=== PATIENT | male | born 1930 | race Caucasian/White ===

== ENCOUNTER 2016-04-19 18:56 | Inpatient (IN) | payer OTHER, MEDICARE ==
[~2016-04-19] VITALS: Ht 170.2 cm; Wt 71.7 kg
[~2016-04-19 18:56] MED LIST: ARICEPT10 M1 PO; ATIVAN1 M1 PO; COSOPT EYE DROP10 ML OD; LEXAPRO20 M1 PO; LIPITOR40 M1 PO; MOBIC7.5 M1 PO; TRAVATAN Z5 ML OPH; TRAZODONE HCL50 M1 PO; VITAMIN B-121000 MC3 PO
--- NOTE | 2016-04-19 19:18 | ED MVC/FALL/TRAUMA COMPLAINT ---
History of Present Illness General Chief Complaint: Fall Stated Complaint: MECHANICAL FALL, -LOC, L HIP PAIN Source: patient Exam Limitations: confusion, dementia Vital Signs & Intake/Output Vital Signs & Intake/Output Vital Signs Date Time Temp Pulse Resp B/P Pulse O2 O2 Flow FiO2 Ox Delivery Rate 04/20 0101 99.4 68 16 117/65 94 Room Air 04/19 2231 98.6 62 18 117/73 95 Room Air 04/19 2126 98 Room Air 04/19 1902 97.6 62 18 166/81 96 Room Air ED Intake and Output 04/20 0000 04/19 1200 Intake Total Output Total 250 Balance -250 Output, Urine 250 Patient 175 lb Weight Allergies Coded Allergies: brinzolamide (From AZOPT) (UNKNOWN PER PT DAUGHTER 12/28/15) Reconcile Medications Atorvastatin Calcium (Lipitor) 40 MG TABLET 1 TAB PO QPM CHOLESTEROL ( Reported) Cyanocobalamin (Vitamin B-12) 1,000 MCG TABLET 1 TAB PO DAILY SUPPLEMENT ( Reported) Donepezil HCl (Aricept) 10 MG TABLET 1 TAB PO QPM MEMORY (Reported) Dorzolamide HCl/Timolol Maleat (Cosopt Eye Drops) 10 ML DROPS 1 GTT OD BID RIGHT EYE (Reported) Escitalopram Oxalate (Lexapro) 20 MG TABLET 1 TAB PO QAM MENTAL HEALTH ( Reported) Lorazepam (Ativan) 1 MG TABLET 1 TAB PO QPM ANXIETY/SLEEP (Reported) Meloxicam (Mobic) 7.5 MG TABLET 1 TAB PO QAM PAIN/INFLAMMATION (Reported) Travoprost (Travatan Z) 5 ML DROPS 1 GTT OPH QPM BOTH EYES (Reported) Trazodone HCl 50 MG TABLET 1 TAB PO QAM MENTAL HEALTH (Reported) Triage Note: 85 YO MALE PEEWEE FROM HOME. PT HX OF ALHEIZMERS DISEASE, LIVES ALONE. PT ALERT, ARRIVES IN [place]. PER EMS PT WAS FOUND IN GARAGE S/P MECHANICAL FALL. PT STATES HE FELL IN HIS KITCHEN. C/O L HIP PAIN. PT ABLE TO MOVE EXTREMITY. Triage Nurses Notes Reviewed? yes Onset: Abrupt Duration: hour(s):, constant, continues in ED Timing: recent history Severity: moderate, severe Injuries/Fall Location: lower extremity Method of Injury: fall Loss of Consciousness: unsure No Modifying Factors: none HPI: 85 -year-old male comes into emergency room for further evaluation of left hip pain after falling at home. Patient reportedly fell in the garage and was unable to get off of the ground. Patient complains of left hip pain. Unsure if he hit his head. Denies any head or neck pain at the moment. Denies any vomiting. Denies any preceding symptoms prior to fall. History is limited secondary to patient has baseline dementia. (FOSTER RICHARDSON) Past History Travel History Traveled to [place] past 21 day No Medical History Any Pertinent Medical History? see below for history Neurological: Alzheimer's disease EENT: glaucoma, macular degeneration Cardiovascular: PPM Respiratory: NONE Gastrointestinal: ACID REFLUX Hepatic: NONE Renal: NONE Musculoskeletal: osteoarthritis Psychiatric: depression Endocrine: NONE Blood Disorders: NONE Cancer(s): prostate cancer [employer]PERINT[employer]ENT GREENS/Reproductive: NONE Surgical History Surgical History: ppm Psychosocial History What is your primary language Chinese Tobacco Use: Never used Family History Hx Contributory? No (FOSTER RICHARDSON) Review of Systems Review of Systems Constitutional: Reports: no symptoms. Eyes: Reports: no symptoms. Ears, Nose, Throat, Mouth: Reports: no symptoms. Respiratory: Reports: no symptoms. Cardiovascular: Reports: no symptoms. Gastrointestinal/Abdominal: Reports: no symptoms. Genitourinary: Reports: no symptoms. Musculoskeletal: Reports: see HPI. Skin: Reports: no symptoms. Neurological/Psychological: Reports: no symptoms. All Other Systems: Reviewed and Negative (FOSTER RICHARDSON) Physical Exam Physical Exam General Appearance: alert, awake, mild distress Head: atraumatic, normal appearance Eyes: Bilateral: normal appearance, EOMI. Ears, Nose, Throat, Mouth: hearing grossly normal, moist mucous membrane Neck: normal inspection, full range of motion Respiratory: normal breath sounds Cardiovascular: regular rate/rhythm Gastrointestinal: soft Extremities: TENDERNESS LEFT HIP, PAIN WITH RANGE OF MOTION, Neurologic/Psych: awake, alert, oriented x 3, normal gait, normal mood/affect Skin: intact, normal color Core Measures ACS in differential dx? No Severe Sepsis Present: No Septic Shock Present: No (FOSTER RICHARDSON) Progress Differential Diagnosis: abd injury, C/T/L spine injury, ext injury, ICH, pelvis injury, pnemothorax, spinal cord injury Plan of Care: Orders Procedure Date/time Status Nothing by Mouth 04/20 B Active Pathway - chart 02/01 0147 Active House Staff 04/20 146 Active Vital Signs 04/20 146 Active Code Status 04/20 146 Active Patient Data 04/20 26 Active Saline Lock 04/20 23 Active Misc Message 04/20 23 Active ED Holding Orders 04/20 23 Active Vital Signs 04/20 23 Active Code Status 04/20 23 Complete Admit to inpatient 04/19 2356 Active Add-on Test (ER Only) 04/19 1939 Active Intake & Output 04/19 1920 Active TROPONIN LEVEL 04/19 1917 Complete PARTIAL THROMBOPLASTIN TIME 04/19 1917 Complete PROTHROMBIN TIME 04/19 1917 Complete ETHANOL 04/19 1917 Complete COMPREHENSIVE METABOLIC PANEL 04/19 1917 Complete CBC WITHOUT DIFFERENTIAL 04/19 1917 Complete EKG 04/19 1917 Active Current Medications Sig/Chang Start time Last Medication Dose Stop Time Status Admin Dextrose/Sodium 1,000 ML Q13H 04/20 0200 UNVr Chloride (D5-Normal Saline) Oxycodone HCl 5 MG Q6H PRN 04/20 0200 UNVr (Roxicodone) Acetaminophen 650 MG Q6P PRN 04/20 0145 UNVr (Tylenol) Morphine Sulfate 4 MG Q4P PRN 04/20 0145 UNVr (Morphine) Laboratory Tests 04/19/16 2323: Anion Gap 10, Estimated GFR > 60, BUN/Creatinine Ratio 22.9, Glucose 125 H, Calcium 8.6, Total Bilirubin 0.6, AST 22, ALT 33, Alkaline Phosphatase 100, Troponin I < 0.01, Total Protein 6.3, Albumin 3.8, Globulin 2.5, Albumin/ Globulin Ratio 1.5, PT 10.5, INR 1.00, APTT < 20 L, CBC w Diff NO MAN DIFF REQ, RBC 3.21 L, MCV 100.3 H, MCH 34.6 H, RDW 14.3, MPV , Gran % 86.9 H, Lymphocytes % 8.6 L, Monocytes % 3.2, Eosinophils % 1.1, Basophils % 0.2, Absolute Granulocytes 7.6 H, Absolute Lymphocytes 0.8 L, Absolute Monocytes 0.3, Absolute Eosinophils 0.1, Absolute Basophils 0, PUBS MCHC 34.5, Serum Alcohol < 10.0 Diagnostic Imaging: Viewed by Me: Radiology Read, CT Scan. Discussed w/RAD: Radiology Read, CT Scan. Radiology Impression: EXAM TYPE: RAD - XRY-HIP 2-3 VIEWS, LEFT EXAMINATION: XR HIP, LEFT CLINICAL INFORMATION: Trauma. Pain. COMPARISON: None TECHNIQUE: 4 views of the left hip. FINDINGS: Exam shows a minimally displaced intertrochanteric fracture of the left hip. A varus deformity is present. There is no dislocation of the hip joint. Atelectasis are present in the floor the pelvis. IMPRESSION: Slightly displaced intertrochanteric fracture with varus deformity of the left hip. DICTATED BY: JUNIOR SUTTON MD DATE/TIME DICTATED: 04/19/162141 LOSS CONTROL ENGINEER:JERONIMO DATE/TIME TRANSCRIBED:04/19/162141 , SERVICE DATE: 04/19/16 EXAM TYPE: RAD - XRY-PORTABLE CHEST XRAY EXAMINATION: CHEST 1 VIEW CLINICAL INFORMATION: Hip fracture. Preop. COMPARISON: None. TECHNIQUE: An AP view of the chest is provided. FINDINGS: The cardiac silhouette is not enlarged. Pacer leads overlie the right atrium and right ventricle. The mediastinal and hilar contours are unremarkable. There are neither pleural effusions nor pneumothoraces. There are no consolidations. There is mild coarsening to interstitial markings throughout both lungs. The osseous structures are unremarkable. IMPRESSION: No evidence for acute disease. Mild coarsening to interstitial markings throughout both lungs. DICTATED BY: MONIKA STEWART MD DATE/TIME DICTATED:04/19/162299 LOSS CONTROL ENGINEER:JERONIMO DATE/ TIME TRANSCRIBED:04/19/162299 CONFIDENTIAL, DO NOT COPY WITHOUT APPROPRIATE AUTHORIZATION., EXAM TYPE: CAT - CT CERV SPINE WO IV CONTRAST; CT HEAD WO IV CONTRAST EXAMINATION: CT HEAD WITHOUT CONTRAST CT CERVICAL SPINE WITHOUT CONTRAST CLINICAL INFORMATION: Fall. Pain. COMPARISON: None. TECHNIQUE: Contiguous axial imaging was performed from the skullbase to vertex without intravenous administration of contrast. Multidetector helical imaging was performed through the cervical spine. DLP: 950.56 mGy-cm. FINDINGS: HEAD: There is no evidence of acute intracranial hemorrhage or territorial infarction. No abnormal mass effect or midline shift is seen. Vivar to white matter differentiation is well preserved. No extra-axial fluid collections are identified. Moderate chronic white matter microangiopathic changes are noted with generalized parenchymal volume loss. There is no hydrocephalus. The osseous structures and soft tissues are normal. The mastoid air cells and visualized portions of the paranasal sinuses are well aerated. CERVICAL SPINE: No acute fracture or dislocation is identified in the cervical spine. Multilevel spondylosis is noted with left-sided facet arthropathy. Moderate disc space narrowing and endplate spurring most notable at the C5-C6 level. The atlantoaxial articulation is normally maintained. The paraspinal soft tissues are normal. The lung apices are clear. Multinodular thyroid gland noted with scattered parenchymal calcifications. Moderate atherosclerotic calcification at the carotid bifurcations. IMPRESSION: 1. No acute intracranial pathology. Moderate chronic white matter microangiopathy and parenchymal volume loss. 2. No evidence of acute cervical spine traumatic injury. 3. Multinodular thyroid gland. DICTATED BY: CORNELIA BRUSH MD DATE/TIME DICTATED:04/19/162026 LOSS CONTROL ENGINEER:EMILIO DATE/TIME TRANSCRIBED:04/19/162026 Initial ED EKG: normal intervals, normal p-waves, normal sinus rhythm, rate (87) , PVCS (FOSTER RICHARDSON) Departure Departure Disposition: STILL A PATIENT Condition: Stable Clinical Impression Primary Impression: Fracture, intertrochanteric, left femur Referrals: JOSE DE JESUS KEBEDE MD (PCP/Family) Departure Forms: Customer Survey General Discharge Information Admission Note Spoke With: JOSE DE JESUS KEBEDE MD Documentation of Exam: Documentation of any treatments & extenuating circumstances including Concerns Regarding Discharge (functional status, medication knowledge or non-compliance, living conditions, etc.) that warrant an admission rather than observation: Patient will require surgery. High risk. Patient would do poorly as an outpatient. (FOSTER RICHARDSON) PA/COMMODITY BROKER Co-Sign Statement Statement: ED Attending supervision documentation- [X] I saw and evaluated the patient. I have also reviewed all the pertinent lab results and diagnostic results. I agree with the findings and the plan of care as documented in the PA's/COMMODITY BROKER's documentation. [X] I have reviewed the ED Record and agree with the PA's/COMMODITY BROKER's documentation. [] Additions or exceptions (if any) to the PAs/COMMODITY BROKER's note and plan are summarized below: [] (RORO ANGELO,CORNELIA Mcarthur)
--- NOTE | 2016-04-19 20:34 | CT SCAN REPORT ---
EXAMINATION: CT HEAD WITHOUT CONTRAST CT CERVICAL SPINE WITHOUT CONTRAST CLINICAL INFORMATION: Fall. Pain. COMPARISON: None. TECHNIQUE: Contiguous axial imaging was performed from the skullbase to vertex without intravenous administration of contrast. Multidetector helical imaging was performed through the cervical spine. DLP: 950.56 mGy-cm. FINDINGS: HEAD: There is no evidence of acute intracranial hemorrhage or territorial infarction. No abnormal mass effect or midline shift is seen. Vivar to white matter differentiation is well preserved. No extra-axial fluid collections are identified. Moderate chronic white matter microangiopathic changes are noted with generalized parenchymal volume loss. There is no hydrocephalus. The osseous structures and soft tissues are normal. The mastoid air cells and visualized portions of the paranasal sinuses are well aerated. CERVICAL SPINE: No acute fracture or dislocation is identified in the cervical spine. Multilevel spondylosis is noted with left-sided facet arthropathy. Moderate disc space narrowing and endplate spurring most notable at the C5-C6 level. The atlantoaxial articulation is normally maintained. The paraspinal soft tissues are normal. The lung apices are clear. Multinodular thyroid gland noted with scattered parenchymal calcifications. Moderate atherosclerotic calcification at the carotid bifurcations. IMPRESSION: 1. No acute intracranial pathology. Moderate chronic white matter microangiopathy and parenchymal volume loss. 2. No evidence of acute cervical spine traumatic injury. 3. Multinodular thyroid gland.
--- NOTE | 2016-04-19 22:56 | RADIOLOGY REPORT ---
EXAMINATION: XR HIP, LEFT CLINICAL INFORMATION: Trauma. Pain. COMPARISON: None TECHNIQUE: 4 views of the left hip. FINDINGS: Exam shows a minimally displaced intertrochanteric fracture of the left hip. A varus deformity is present. There is no dislocation of the hip joint. Atelectasis are present in the floor the pelvis. IMPRESSION: Slightly displaced intertrochanteric fracture with varus deformity of the left hip.
--- NOTE | 2016-04-19 23:13 | RADIOLOGY REPORT ---
EXAMINATION: CHEST 1 VIEW CLINICAL INFORMATION: Hip fracture. Preop. COMPARISON: None. TECHNIQUE: An AP view of the chest is provided. FINDINGS: The cardiac silhouette is not enlarged. Pacer leads overlie the right atrium and right ventricle. The mediastinal and hilar contours are unremarkable. There are neither pleural effusions nor pneumothoraces. There are no consolidations. There is mild coarsening to interstitial markings throughout both lungs. The osseous structures are unremarkable. IMPRESSION: No evidence for acute disease. Mild coarsening to interstitial markings throughout both lungs.
[2016-04-19 23:30] LABS: ABSOLUTE BASOPHIL COUNT 0 /CUMM (0.0-0.2); ABSOLUTE EOSINOPHIL COUNT 0.1 /CUMM (0.0-0.7); EOSINOPHIL % 1.1 % (0-5)
[2016-04-19 23:32] LABS: ABSOLUTE GRANULOCYTE CT 7.6 /CUMM (1.4-6.5); ABSOLUTE LYMPH COUNT 0.8 /CUMM (1.2-3.4); ABSOLUTE MONOCYTE COUNT 0.3 /CUMM (0.10-0.60); BASOPHIL % 0.2 % (0.0-2.0); HEMATOCRIT 32.2 % (42-52); MEAN CORPUSCULAR HGB 34.6 PG (27.0-31.0); MEAN CORPUSCULAR HGB CONC 34.5 G/DL (33.0-37.0); MEAN CORPUSCULAR VOLUME 100.3 FL (80.0-94.0); RBC DISTRIBUTION WIDTH 14.3 % (11.5-14.5); RED BLOOD CELL CT 3.21 /CUMM (4.70-6.10)
[2016-04-19 23:34] LABS: GRANULOCYTE % 86.9 % (42.2-75.2); WHITE BLOOD CELL COUNT 9.4 /CUMM (4.8-10.8)
[2016-04-19 23:39] LABS: PT 10.5 SEC (9.4-12.5); PTT < 20 SEC (25-37)
--- NOTE | 2016-04-20 00:38 | Cons- Orthopedic ---
General Information and HPI Consulting Request Date of Consult: 04/20/16 Requested By: Benji Heath PA-C Reason for Consult: Left hip fx Source of Information: patient, EMS Exam Limitations: patient's age History of Present Illness: Patient is an 85yo M BIBA who sustained an unwitnessed fall at home. He states he tripped and fell. He denies hitting his head. Patient c/o left hip pain which is tolerable at rest but painful with movement. He denies numbness/ tingling in BLE. Denies pain anywhere else. Denies LOC. Patient denies CP/ SOB. Allergies/Medications Allergies: Coded Allergies: brinzolamide (From AZOPT) (UNKNOWN PER PT DAUGHTER 12/28/15) Home Med List: Atorvastatin Calcium (Lipitor) 40 MG TABLET 1 TAB PO QPM CHOLESTEROL ( Reported) Cyanocobalamin (Vitamin B-12) 1,000 MCG TABLET 1 TAB PO DAILY SUPPLEMENT ( Reported) Donepezil HCl (Aricept) 10 MG TABLET 1 TAB PO QPM MEMORY (Reported) Dorzolamide HCl/Timolol Maleat (Cosopt Eye Drops) 10 ML DROPS 1 GTT OD BID RIGHT EYE (Reported) Escitalopram Oxalate (Lexapro) 20 MG TABLET 1 TAB PO QAM MENTAL HEALTH ( Reported) Lorazepam (Ativan) 1 MG TABLET 1 TAB PO QPM ANXIETY/SLEEP (Reported) Meloxicam (Mobic) 7.5 MG TABLET 1 TAB PO QAM PAIN/INFLAMMATION (Reported) Travoprost (Travatan Z) 5 ML DROPS 1 GTT OPH QPM BOTH EYES (Reported) Trazodone HCl 50 MG TABLET 1 TAB PO QAM MENTAL HEALTH (Reported) Past History Medical History Neurological: Alzheimer's disease EENT: glaucoma, macular degeneration Cardiovascular: PPM Respiratory: NONE Gastrointestinal: ACID REFLUX Hepatic: NONE Renal: NONE Musculoskeletal: osteoarthritis Psychiatric: depression Endocrine: NONE Blood Disorders: NONE Cancer(s): prostate cancer GUT DROPPER/Reproductive: NONE Surgical History Pertinent Surgical History: ppm Review of Systems Review of Systems Constitutional: Denies: fever, malaise. EENTM: Reports: no symptoms. Cardiovascular: Denies: chest pain. Respiratory: Denies: short of breath. GI: Reports: no symptoms. Genitourinary: Denies: dysuria. Musculoskeletal: Reports: see HPI. Skin: Reports: no symptoms. Exam & Diagnostic Data Vital Signs and I&O Vital Signs Date Time Temp Pulse Resp B/P Pulse O2 O2 Flow FiO2 Ox Delivery Rate 04/191 98.6 62 18 117/73 95 Room Air 04/19 2125 98 Room Air 04/19 1902 97.6 62 18 166/81 96 Room Air Intake & Output 04/20 0800 04/20 0000 04/19 1600 04/19 0800 04/19 0000 04/18 1600 Intake Total Output Total 250 Balance -250 Output, Urine 250 Patient 175 lb Weight Physical Exam: General: NAD, comfortable Chest: CTAB. RRR. Abdomen: soft, nontender, nondistended. Ext: Left hip tender to palpation. LLE with loss of height, compartments soft. No calve swelling/TTP, neurovascularly intact bilateral lower extremities Last 24 Hours of Labs: Laboratory Tests 04/19 2322 Chemistry Sodium (137 - 145 mmol/L) 133 L Potassium (3.5 - 5.1 mmol/L) 4.5 Chloride (98 - 107 mmol/L) 100 Carbon Dioxide (22 - 30 mmol/L) 22 Anion Gap (5 - 16) 10 BUN (9 - 20 mg/dL) 16 Creatinine (0.7 - 1.2 mg/dL) 0.7 Estimated GFR (>60 ml/min) > 60 BUN/Creatinine Ratio (7 - 25 %) 22.9 Glucose (65 - 99 mg/dL) 125 H Calcium (8.4 - 10.2 mg/dL) 8.6 Total Bilirubin (0.2 - 1.3 mg/dL) 0.6 AST (17 - 59 U/L) 22 ALT (21 - 72 U/L) 33 Alkaline Phosphatase (< 127 U/L) 100 Troponin I (<0.11 ng/ml) < 0.01 Total Protein (6.3 - 8.2 g/dL) 6.3 Albumin (3.5 - 5.0 g/dL) 3.8 Globulin (1.9 - 4.2 gm/dL) 2.5 Albumin/Globulin Ratio (1.1 - 2.2 %) 1.5 Coagulation PT (9.4 - 12.5 SEC) 10.5 INR (0.90 - 1.17) 1.00 APTT (25 - 37 SEC) < 20 L Hematology CBC w Diff NO MAN DIFF REQ WBC (4.8 - 10.8 /CUMM) 9.4 RBC (4.70 - 6.10 /CUMM) 3.21 L Hgb (14.0 - 18.0 G/DL) 11.1 L Hct (42 - 52 %) 32.2 L MCV (80.0 - 94.0 FL) 100.3 H MCH (27.0 - 31.0 PG) 34.6 H RDW (11.5 - 14.5 %) 14.3 Plt Count (/CUMM) MPV (7.4 - 10.4 FL) Gran % (42.2 - 75.2 %) 86.9 H Lymphocytes % (20.5 - 51.1 %) 8.6 L Monocytes % (1.7 - 9.3 %) 3.2 Eosinophils % (0 - 5 %) 1.1 Basophils % (0.0 - 2.0 %) 0.2 Absolute Granulocytes (1.4 - 6.5 /CUMM) 7.6 H Absolute Lymphocytes (1.2 - 3.4 /CUMM) 0.8 L Absolute Monocytes (0.10 - 0.60 /CUMM) 0.3 Absolute Eosinophils (0.0 - 0.7 /CUMM) 0.1 Absolute Basophils (0.0 - 0.2 /CUMM) 0 PUBS MCHC (33.0 - 37.0 G/DL) 34.5 Toxicology Serum Alcohol (<10 MG/DL) < 10.0 Imaging Results: XAM TYPE: RAD - XRY-HIP 2-3 VIEWS, LEFT EXAMINATION: XR HIP, LEFT CLINICAL INFORMATION: Trauma. Pain. COMPARISON: None TECHNIQUE: 4 views of the left hip. FINDINGS: Exam shows a minimally displaced intertrochanteric fracture of the left hip. A varus deformity is present. There is no dislocation of the hip joint. Atelectasis are present in the floor the pelvis. IMPRESSION: Slightly displaced intertrochanteric fracture with varus deformity of the left hip. Assessment/Plan Assessment/Plan 85yo M with left hip fracture s/p fall. Patient will require ORIF of left hip. - Admit to medicine - Keep NPO - Pain control - IVF - NWB LLE - obtain medical clearance. Cardiac clearance at discretion of medical team. - OR tomorrow if cleared - care per primary team Consult Acknowledgment - Thank you for your consult request.
--- NOTE | 2016-04-20 02:12 | History & Physical ---
TRINI ANGELO,[facility] 04/20/16 0211: General Information and HPI MD Statement: I have seen and personally examined CHRISTINE CONTRERAS and documented this H&P. The patient is a 85 year old M who presented with a patient stated chief complaint of [fall and left hip pain]. Source of Information: patient, EMS Exam Limitations: patient's age History of Present Illness: Patient is a 85-year-old male was BIBA after he had a mechanical fall this evening. Patient was in his garage and reports that some boxes in his garage ( that were empty and light) fell on him and caused him to fall on his left side, a neighbor saw him and called the ambulance and his daughter and son. Patient states that he did not lose consciousness also did not hurt his head. Denies numbness or tingling in the lower extremities, reports pain on the left hip, no pain elsewhere. He denies dizziness, chest pain, palpitations or shortness of breath. Patient has dementia which progressed recently, he is alert and oriented but does not remember his PMH except for prostate cancer that was treated with radiation, glaucoma, and dementia. Does not remember that he had a pacemaker put in and what was the reason. Also doesn't remember the name of his medications. Allergies/Medications Allergies: Coded Allergies: brinzolamide (From AZOPT) (UNKNOWN PER PT DAUGHTER 12/28/15) Home Med list Atorvastatin Calcium (Lipitor) 40 MG TABLET 1 TAB PO QPM CHOLESTEROL ( Reported) Cyanocobalamin (Vitamin B-12) 1,000 MCG TABLET 1 TAB PO DAILY SUPPLEMENT ( Reported) Donepezil HCl (Aricept) 10 MG TABLET 1 TAB PO QPM MEMORY (Reported) Dorzolamide HCl/Timolol Maleat (Cosopt Eye Drops) 10 ML DROPS 1 GTT OD BID RIGHT EYE (Reported) Escitalopram Oxalate (Lexapro) 20 MG TABLET 1 TAB PO QAM MENTAL HEALTH ( Reported) Lorazepam (Ativan) 1 MG TABLET 1 TAB PO QPM ANXIETY/SLEEP (Reported) Meloxicam (Mobic) 7.5 MG TABLET 1 TAB PO QAM PAIN/INFLAMMATION (Reported) Travoprost (Travatan Z) 5 ML DROPS 1 GTT OPH QPM BOTH EYES (Reported) Trazodone HCl 50 MG TABLET 1 TAB PO QAM MENTAL HEALTH (Reported) Past History Travel History Traveled to [place] past 21 day No Medical History Neurological: Alzheimer's disease EENT: glaucoma, macular degeneration Cardiovascular: pacemaker - PPM Respiratory: NONE Gastrointestinal: ACID REFLUX Hepatic: NONE Renal: NONE Musculoskeletal: osteoarthritis Psychiatric: depression Endocrine: NONE Blood Disorders: NONE Cancer(s): prostate cancer 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 Ambulation: independent IADLs Needs Assist: shopping, housework, transportation, medication admin. Review of Systems Review of Systems Constitutional: Denies: chills, fever, weakness. EENTM: Reports: blurred vision (right worse than the left). Cardiovascular: Denies: chest pain, edema, orthopena, palpitations, peripheral edema, syncope. Respiratory: Denies: cough, short of breath, sputum production. GI: Denies: abdominal pain, nausea, changes in stool, vomiting. Genitourinary: Reports: no symptoms. Musculoskeletal: Denies: back pain, joint pain. Skin: Reports: no symptoms. Neurological/Psychological: Denies: headache, weakness. Hematologic/Endocrine: Denies: bruising, bleeding, polyuria. Exam & Diagnostic Data Last 24 Hrs of Vital Signs/I&O Vital Signs Date Time Temp Pulse Resp B/P Pulse O2 O2 Flow FiO2 Ox Delivery Rate 04/20 0315 97.3 67 20 96/60 95 Room Air 04/20 0101 99.4 68 16 117/65 94 Room Air 04/19 2231 98.6 62 18 117/73 95 Room Air 04/19 2126 98 Room Air 04/19 1902 97.6 62 18 166/81 96 Room Air Intake & Output 04/20 0800 04/20 0000 04/19 1600 Intake Total Output Total 250 Balance -250 Output, Urine 250 Patient 71.668 kg 79.379 kg Weight Physical Exam General Appearance Alert, Oriented X3, Cooperative, No Acute Distress Skin 5x5 cm erythematous superficial skin lesion on the lateral aspect of the right knee HEENT Atraumatic, PERRLA, EOMI, Mucous Membr. moist/pink Neck Supple, No JVD Cardiovascular Regular Rate, distant heart sounds Lungs Clear to Auscultation, Normal Air Movement Abdomen Normal Bowel Sounds, Soft, No Tenderness Neurological Normal Speech, Normal Tone, Sensation Intact, Cranial Nerves 3-12 NL, 5/5 forces on the upper extremities, lower extrmities forces were not obtainable due to pain generated by movement Extremities No Clubbing, No Cyanosis, No Edema, Normal Pulses, No Tenderness/ Swelling, left leg is shorter and externally rotated Vascular Normal Pulses, Pulses Symmetrical Last 24 Hrs of Labs/Nelson: Laboratory Tests 04/19/16 2323: Anion Gap 10, Estimated GFR > 60, BUN/Creatinine Ratio 22.9, Glucose 125 H, Calcium 8.6, Total Bilirubin 0.6, AST 22, ALT 33, Alkaline Phosphatase 100, Troponin I < 0.01, Total Protein 6.3, Albumin 3.8, Globulin 2.5, Albumin/ Globulin Ratio 1.5, PT 10.5, INR 1.00, APTT < 20 L, CBC w Diff NO MAN DIFF REQ, RBC 3.21 L, MCV 100.3 H, MCH 34.6 H, RDW 14.3, MPV , Gran % 86.9 H, Lymphocytes % 8.6 L, Monocytes % 3.2, Eosinophils % 1.1, Basophils % 0.2, Absolute Granulocytes 7.6 H, Absolute Lymphocytes 0.8 L, Absolute Monocytes 0.3, Absolute Eosinophils 0.1, Absolute Basophils 0, PUBS MCHC 34.5, Serum Alcohol < 10.0 Assessment/Plan Assessment: Patient is a 85-year-old male was brought in by ambulance after a mechanical fall. He has a history of heart disease s/p pacemaker placement (etiology unknown), glaucoma, macular degeneration, prostatic cancer, dementia, GERD, osteoporosis and depression. X-ray of the hip showed slightly displaced intertrochanteric fracture with varus deformity of the left hip. Patient is admitted to the medicine floor to obtain medical clearance for ORIF of left hip tomorrow. Problem list and plan Left Intertrochanteric femoral fracture * Nothing by mouth past midnight for ORIF surgery tomorrow * Pain control; oxycodone 5 mg every 6 when necessary, IV morphine sulfate 2 mg every 6 when necessary * IV access and IV fluids * check coagulation factors * Medical clearance needed in AM Questionable history of arrhythmia and pacemaker placement Patient does not know the reason for pacemaker placement and currently records are unavailable * Troponin was negative, EKG showed NSR, RBBB, QTC 510 * Consider cardiology consult to clear the patient for surgery Depression * Escitalopram 10 mg daily * medication list needs to be confirmed Glaucoma * Continue latanoprost and dorzolamide Dementia * continue donepezil 10 mg daily No DVT prophylaxis in anticipation for surgery tomorrow a.m. Diet * Nothing by mouth CODE STATUS * Full code As Ranked By This Provider Problem List: 1. Fracture, intertrochanteric, left femur Core Measures/Miscellaneous Acute Coronary Syndrome ACS Diagnosis: No Cerebrovascular Accident CVA/TIA Diagnosis: No Congestive Heart Failure CHF Diagnosis: No Venous Thromboembolism VTE Risk Factors: Acute medical illness, Age > 40, Immobility, paresis, Trauma major or lower ext VTE Prophylaxis Ordered Inpt: Mechanical (ALPS/TEDS) No Mech VTE prophylaxis d/t: No contraindications No VTE Pharm Prophylaxis d/t: No contraindications VTE Diagnosis: No VTE Type: NONE VTE Confirmed by (Test): NONE Severe Sepsis Severe Sepsis Present: No Septic Shock Septic Shock Present: No Miscellaneous Documentation Attending Case Discussed With: JOSE DE JESUS KEBEDE MD Primary Care Physician: JOSE DE JESUS KEBEDE MD Patient sees these Specialists unknown Level of Patient Care: General Medicine TERESO ROUSE MD 04/20/16 0257: Resident Review Statement Resident Statement: examined this patient, discussed with manager internal, agreed with manager internal, reviewed EMR data (avail), reviewed images, amended to note Other Findings: This is 85-year-old gentleman with past medical history of Alzheimer dementia, glaucoma, macular degeneration, GERD, depression, prostate cancer status post radiation in remission, heart disease status post pacemaker placement 6 years ago was brought in by ambulance from home after she sustained a fall resulting in left hip fracture. While walking through his garage he fell on the floor after a few light boxes fell on his head from the cabinet. Patient denies any head strike, , loss of consciousness. He claims that his neighbor witnessed the fall. Immediately after he fell he felt severe pain in his left hip. His neighbor called the ambulance and patient was brought in for further evaluation. On evaluation hip x-ray revealed slightly displaced intratrochanteric fracture with varus deformity of left hip. On admission his vitals were T 97.6, HR 62, RR 18, BP 166/81, O2 sat 95% on room air. On physical exam patient is alert oriented 3 but intermittently confused, HEENT PERRLA EOMI, neck supple, heart S1-S2 normal noted left chest wall pacemaker, lungs clear on auscultation, abdomen soft nontender nondistended with preserved bowel sounds, noted short left lower extremity compared to right which is marginally externally rotated, no peripheral edema, pedal pulses are intact, no focal gross neuro deficit. Labs revealed the previously of 9.4, H&H 11.1/32.2, unable to calculate platelet , normal electrolytes, BUN 16, creatinine 0.7, blood was 125, troponin less than 0.01, normal LFT, INR 1. EKG revealed normal sinus rhythm at rate of 87 with RBBB, QTC 510 Chest x-ray revealed mild coarsening to interstitial marking throughout both lungs without any acute lung condition Hip x-ray revealed slightly displaced intratrochanteric fracture with varus deformity of left hip CT head/cervical spine did not reveal any acute intracranial pathology but noted moderate chronic white matter microangiopathic and parenchymal volume loss changes without any evidence of cervical spine injury. Also noted multinodular thyroid gland. Assessment: This is 85-year-old gentleman with past medical history of Alzheimer dementia, glaucoma, prostate cancer and depression presented from home after sustaining a mechanical fall resulting in left hip fracture. 1. Left hip fracture - Chest x-ray revealed slightly displaced intertrochanteric fracture with varus deformity of left hip - Orthopedic Surgery evaluation appreciated, follow orthopedic surgeon recommendation in a.m. - Please keep patient nothing by mouth in anticipation of ORIF - Considering patient's dementia unable to get patient's previous heart disease history, please get records regarding patient's heart problem - At baseline patient is pretty much independent able to do all his activity suffice METs of 4 - Medical clearance for the surgery in a.m. if needed consider cardiology input - Continue gentle IV hydration - Pain management - Physical therapy after surgery 2. Alzheimer dementia - Continue donepezil 10 mg daily 3. Depression - Please confirm the medication list, as patient was not able to provide any information - Please restart on antidepressant once conformed CMR 4. DVT prophylaxis Mechanical, restart pharmacologic DVT prophylaxis after surgery 5. 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
[2016-04-20 03:15] VITALS: BP 96/60
--- NOTE | 2016-04-20 07:05 | PN- Housestaff ---
Subjective Follow-up For: Left displaced intertrochanteric fracture Alzheimer's dementia Depression Subjective: Patient seen and examined at bedside this AM. He is pleasant and able to relay the events that occured prior to his admission to [facility]. He does report that there was no episode of dizziness, lightheadedness or palpations prior to mechanical fall at home. He does currently endorse left hip pain, greatly worsened with movement and improved with immobility. Patient is not requesting pain medications currently. Plan discussed at length with patient and he is amenable to surgery today. Review of Systems Constitutional: Denies: chills, fever, malaise, weakness. EENTM: Denies: blurred vision, visual changes, hearing changes, nasal congestion. Cardiovascular: Denies: chest pain, palpitations, syncope. Respiratory: Denies: cough, short of breath, sputum production, wheezing. Gastrointestinal: Denies: abdominal pain, bloating, constipation, diarrhea, nausea, vomiting. Genitourinary: Denies: dysuria, hematuria. Musculoskeletal: Reports: back pain, joint pain (Knees bilaterally, Left hip). Denies: neck pain. Skin: Reports: lesions (Erythema/bruise right knee). Denies: rash. Neurological/Psychological: Denies: confusion, headache, tingling, tremors. Hematologic/Endocrine: Reports: bruising. Denies: bleeding. Immunologic/Allergic: Denies: splenectomy. Objective Last 24 Hrs of Vital Signs/I&O Vital Signs Date Time Temp Pulse Resp B/P Pulse O2 O2 Flow FiO2 Ox Delivery Rate 04/20 0315 97.3 67 20 96/60 95 Room Air 04/20 0101 99.4 68 16 117/65 94 Room Air 04/19 2231 98.6 62 18 117/73 95 Room Air 04/19 2126 98 Room Air 04/19 1902 97.6 62 18 166/81 96 Room Air Intake & Output 04/20 0800 04/20 0000 04/19 1600 Intake Total 375 Output Total 250 Balance 375 -250 Intake, IV 375 Intake, Oral 0 Number 0 Bowel Movements Output, Urine 250 Patient 158 lb 175 lb Weight Physical Exam General Appearance: Alert, Oriented X3, Cooperative, No Acute Distress Skin: 5x5 cm erythematous superficial skin abrasion right lateral knee. Small 1 cm closed laceration on top of head. HEENT: Atraumatic, PERRLA, Mucous Membr. moist/pink Neck: Supple, No JVD Lymphatic: Cervical nl Cardiovascular: Regular Rate, Left chest wall pacemaker noted Lungs: Clear to Auscultation, Normal Air Movement Abdomen: Normal Bowel Sounds, Soft, No Tenderness, No Masses Neurological: Normal Speech, Normal Tone Extremities: No Clubbing, No Cyanosis, No Edema, [place] left lower extremity that is externally rotated Vascular: Pulses Symmetrical Current Medications: Current Medications Sig/Chang Start time Last Medication Dose Route Stop Time Status Admin Acetaminophen 650 MG Q6P PRN 04/20 0145 AC PO Dextrose/Sodium 1,000 ML Q13H 04/20 0200 AC 04/20 Chloride IV 0239 Donepezil HCl 10 MG DAILY 04/20 1000 AC PO Dorzolamide HCl 1 GTT BID 04/20 1000 AC OPH Escitalopram Oxalate 20 MG DAILY 04/20 1000 AC PO Influenza Virus 0.5 ML 1000 04/20 1000 AC Vaccine IM 04/20 1001 Latanoprost 1 GTT AT BEDTIME 04/20 2200 AC OPH Morphine Sulfate 2 MG Q4P PRN 04/20 0145 AC 04/20 IV 0719 Morphine Sulfate 4 MG ONCE ONE 04/19 2244 DC 04/19 IV 04/19 2245 2241 Morphine Sulfate 0 .STK-MED ONE 04/19 2238 DC .ROUTE Morphine Sulfate 0 .STK-MED ONE 04/19 2112 DC .ROUTE Morphine Sulfate 2 MG ONCE ONE 04/19 2044 DC 04/19 IV 04/19 Oxycodone HCl 5 MG Q6P PRN 04/20 0200 AC 04/20 PO 0719 Last 24 Hrs of Lab/Nelson Results Last 24 Hrs of Labs/Mics: Laboratory Tests 04/20/16 0728: Troponin I Pending 04/19/163: Anion Gap 10, Estimated GFR > 60, BUN/Creatinine Ratio 22.9, Glucose 125 H, Calcium 8.6, Total Bilirubin 0.6, AST 22, ALT 33, Alkaline Phosphatase 100, Troponin I < 0.01, Total Protein 6.3, Albumin 3.8, Globulin 2.5, Albumin/ Globulin Ratio 1.5, PT 10.5, INR 1.00, APTT < 20 L, CBC w Diff NO MAN DIFF REQ, RBC 3.21 L, MCV 100.3 H, MCH 34.6 H, RDW 14.3, MPV , Gran % 86.9 H, Lymphocytes % 8.6 L, Monocytes % 3.2, Eosinophils % 1.1, Basophils % 0.2, Absolute Granulocytes 7.6 H, Absolute Lymphocytes 0.8 L, Absolute Monocytes 0.3, Absolute Eosinophils 0.1, Absolute Basophils 0, PUBS MCHC 34.5, Serum Alcohol < 10.0 Orders Radiology Findings: CXR: IMPRESSION: No evidence for acute disease. Mild coarsening to interstitial markings throughout both lungs. Left hip XRay: FINDINGS: Exam shows a minimally displaced intertrochanteric fracture of the left hip. A varus deformity is present. There is no dislocation of the hip joint. Atelectasis are present in the floor the pelvis. IMPRESSION: Slightly displaced intertrochanteric fracture with varus deformity of the left hip. Miscellaneous Findings: EXAMINATION: CT HEAD WITHOUT CONTRAST CT CERVICAL SPINE WITHOUT CONTRAST CLINICAL INFORMATION: Fall. Pain. COMPARISON: None. TECHNIQUE: Contiguous axial imaging was performed from the skullbase to vertex without intravenous administration of contrast. Multidetector helical imaging was performed through the cervical spine. DLP: 950.56 mGy-cm. FINDINGS: HEAD: There is no evidence of acute intracranial hemorrhage or territorial infarction. No abnormal mass effect or midline shift is seen. Vivar to white matter differentiation is well preserved. No extra-axial fluid collections are identified. Moderate chronic white matter microangiopathic changes are noted with generalized parenchymal volume loss. There is no hydrocephalus. The osseous structures and soft tissues are normal. The mastoid air cells and visualized portions of the paranasal sinuses are well aerated. CERVICAL SPINE: No acute fracture or dislocation is identified in the cervical spine. Multilevel spondylosis is noted with left-sided facet arthropathy. Moderate disc space narrowing and endplate spurring most notable at the C5-C6 level. The atlantoaxial articulation is normally maintained. The paraspinal soft tissues are normal. The lung apices are clear. Multinodular thyroid gland noted with scattered parenchymal calcifications. Moderate atherosclerotic calcification at the carotid bifurcations. IMPRESSION: 1. No acute intracranial pathology. Moderate chronic white matter microangiopathy and parenchymal volume loss. 2. No evidence of acute cervical spine traumatic injury. 3. Multinodular thyroid gland. Assessment/Plan Assessment: Mr. Conrad is a pleasant 85 year old male with PMH Alzheimer's dementia , depression, GERD, glaucoma, macular degeneration, prostate cancer status post radiation (in remission) and heart disease status post pacemaker placement 6 years ago who was brought to [facility] on 04/19/16 via ambulance after a witnessed mechanical fall at home (witnessed by his neighbor who subsequently called EMS). Patient reported that a few boxes fell on him while in his garage, resulting in a fall without head strike and with noted subsequent pain to his left hip. Patient denied head strike or loss of consciousness. Patient complaints at time of presentation include left hip pain exaggerated by movement, lower back pain and bilateral knee pain secondary to "arthritis". In the ED: Vital signs showed T 97.6, HR 62, RR 18, BP 166/81 and O2 saturation of 96% on room air. Labs showed WBC 9.4, macrocytic anemia to 11.1/32.2 (MCV 100.3), plt count unable to be obtained due to clumping, and BEP unremarkable except for slight hyponatremia to 133. Troponin negative to <0.01. INR normal to 1.00. Serum alcohol <10. CT head/Cspine showed no acute intracranial pathology, no c-spine trauma, multinodular thyroid gland. Left hip Xray showed slightly displaced intertrochanteric fracture with varus deformity. CXR showed no evidence of acute disease, though mild coarsening to interstitial markings noted bilatereally. EKG showed normal sinus rhythm at rate of 87 with RBBB, QTC 510. Patient is admitted to the general medicine floor and the follow is the current management: 1. Left mildly displaced intertrochanteric hip fracture * Hip XR showed slightly displaced intertrochanteric fracture with varus deformity of left hip * Orthopedic consult appreciated, suggest that if patient is cleared by cardiology today, patient will be taken to OR for ORIF * Patient to be kept non-weight bearing of bilateral lower extremities for now * Coags WNL (INR 1) * Repeat CBC with citrate tube pending due to prior clumping in EDTA, f/u results * NPO, IVF with D5 1/2 NS at 75 cc/h * Pain control with PO tylenol for mild pain, Roxicodone 5 mg PO Q6P for moderate and 2 mg IV morphine Q4P for severe pain * Revised cardiac risk index shows 0.4% risk of major cardiac event (patient independant, METS >4) * Cardiac clearance with Dr. Bentley V Maurer placed, will f/u recommendations prior to OR * Will consult PT after surgery 2. ?History of arrythmia, PPM * Patient does not know reason he had PPM implanted * Troponin negative x 2, EKG showed NSR with RBBB and prolonged QTC to 510 * Cardiology consult pending, f/u reccomendations 3. Alzheimer's dementia * Continue donepezil 10 mg PO daily 4. Depression * Patient's mood appears appropriate, no acute SI/HI * Will confirm med list this AM * Continue escitalopram 10 mg PO daily 5. Glaucoma * Continue latanoprost and dorzolamide 6. Influenza vaccination * Patient received flu shot on 04/20/16 FULL CODE DVTP: ALPS Diet: NPO Mild-severe pain pathway FULL CODE Diet: NPO DVTP: Alps Mild-severe pain pathway Problem List: 1. Fracture, intertrochanteric, left femur 2. Alzheimer's dementia 3. Depression 4. Pacemaker Pain Ratin Pain Location: Left hip, lower back Pain Goal: Pain 4 or less Pain Plan: Tylenol 650 mg PO Q6P for mild pain, roxicodone 5 mg PO Q6P for moderate pain, IV 2 mg Morphine Q4P for severe pain. Tomorrow's Labs & Rationales: CBC (monitor H&H post-op), BEP (monitor electrolytes post-op)
--- NOTE | 2016-04-20 07:08 | PN- Orthopedic ---
Subjective Subjective: The patient is seen this morning. He reports that is relatively comfortable and has no pain unless she tries to move his hip. Objective Vital Signs and I&Os Vital Signs Date Time Temp Pulse Resp B/P Pulse O2 O2 Flow FiO2 Ox Delivery Rate 04/20 0315 97.3 67 20 96/60 95 Room Air 04/20 0101 99.4 68 16 117/65 94 Room Air 04/19 2231 98.6 62 18 117/73 95 Room Air 04/19 2126 98 Room Air 04/19 1902 97.6 62 18 166/81 96 Room Air Intake & Output 04/20 0800 04/20 0000 04/19 1600 04/19 0800 04/19 0000 04/18 1600 Intake Total 375 Output Total 250 Balance 375 -250 Intake, IV 375 Intake, Oral 0 Number 0 Bowel Movements Output, Urine 250 Patient 158 lb 175 lb Weight Physical Exam: Gen.: Alert and in no obvious distress Skin: Warm and dry Extremities: Bilateral lower extremities are warm without calf tenderness or significant edema. Gross motor and sensory are intact. Left hip joint is nontender with no significant edema. Assessment/Plan Assessment/Plan Assessment: 85-year-old male status post fall who sustained a left femoral fracture. Recommendations: Keep nothing by mouth with IV hydration Strict bedrest until fixation PRN pain medication Will bring to the operating theater once cleared by cardiology and medicine
[2016-04-20 08:37] VITALS: BP 142/68
[2016-04-20 09:18] LABS: ABSOLUTE BASOPHIL COUNT 0 /CUMM (0.0-0.2); ABSOLUTE EOSINOPHIL COUNT 0.1 /CUMM (0.0-0.7); ABSOLUTE GRANULOCYTE CT 5.6 /CUMM (1.4-6.5); ABSOLUTE MONOCYTE COUNT 0.9 /CUMM (0.10-0.60); BASOPHIL % 0.3 % (0.0-2.0); EOSINOPHIL % 1.7 % (0-5); GRANULOCYTE % 73.5 % (42.2-75.2); HEMATOCRIT 27.8 % (42-52); MEAN CORPUSCULAR HGB 34.3 PG (27.0-31.0); MEAN CORPUSCULAR HGB CONC 34.3 G/DL (33.0-37.0); MEAN CORPUSCULAR VOLUME 99.9 FL (80.0-94.0); MEAN PLATELET VOLUME 6.5 FL (7.4-10.4); PLATELET COUNT 204 /CUMM (130-400); RBC DISTRIBUTION WIDTH 14.7 % (11.5-14.5); RED BLOOD CELL CT 2.79 /CUMM (4.70-6.10); WHITE BLOOD CELL COUNT 7.6 /CUMM (4.8-10.8)
--- NOTE | 2016-04-20 09:40 | Admission Certification ---
Admission Certification Certification Statement - As attending physician, I certify that at the time of - admission, based on clinical presentation, severity of - symptoms, need for further diagnostic testing and - therapeutic interventions, and risk of adverse outcomes - without in-hospital treatment, in my clinical assessment, - this patient requires an acute hospital stay for a minimum - of two nights or longer. I have also considered psychsocial - factors such as support system, advanced age, financial - issues, cognitive issues, and failed out-patient treatments, - past re-admission history, safety of patient, and lack of - compliance as applicable. Specific rationale supporting this admission is: Left hip fracture
--- NOTE | 2016-04-20 09:44 | PN- Att Addend ---
Attending Addendum Attending Brief Note Patient complains of pain left hip General Appearance: Alert, No Acute Distress Skin: Grossly normal HEENT: PEERLA Neck: Supple, No JVD Cardiovascular: Regular Rate, Normal S1, Normal S2, No Murmurs Lungs: Clear to Auscultation, Normal Air Movement Abdomen: Normal Bowel Sounds, Soft, No Tenderness Neurological: Normal Speech, Strength at 5/5 X4 Ext, Cranial Nerves 3-12 NL, Reflexes 2+ Extremities: No Clubbing, No Cyanosis, No Edema Vascular: Normal Pulses Assessment 85-year-old with history of dementia, glaucoma, history of pacemaker placement who does not at this point follow cardiology presenting with left slightly displaced hip fracture status post what likely appears to be a mechanical fall based on limited history but the patient and his caregiver. He we will get a cardiology evaluation for clearance however patient is about moderate risk given his advanced age and limited functional status. Plan cardiology clearance Continue current pain regimen Start patient on DVT prophylaxis postop Continue other home meds Current Medications Sig/Chang Start time Last Medication Dose Route Stop Time Status Admin Acetaminophen 650 MG Q6P PRN 04/20 0145 AC PO Dextrose/Sodium 1,000 ML Q13H 04/20 0200 AC 04/20 Chloride IV 0239 Donepezil HCl 10 MG DAILY 04/20 1000 AC 04/20 PO 0809 Dorzolamide HCl 1 GTT BID 04/20 1000 AC 04/20 OPH 0810 Escitalopram Oxalate 20 MG DAILY 04/20 1000 AC 04/20 PO 0809 Influenza Virus 0.5 ML 1000 / 1000 AC Vaccine IM 04/20 1001 Latanoprost 1 GTT AT BEDTIME 04/20 2200 AC OPH Morphine Sulfate 2 MG Q4P PRN 04/20 0145 AC 04/20 IV 0719 Morphine Sulfate 4 MG ONCE ONE 04/195 DC 04/19 IV 04/196 2241 Morphine Sulfate 0 .STK-MED ONE 04/19 2238 DC .ROUTE Morphine Sulfate 0 .STK-MED ONE 04/19 2112 DC .ROUTE Morphine Sulfate 2 MG ONCE ONE 04/19 2044 DC 04/19 IV 04/19 Oxycodone HCl 5 MG Q6P PRN 04/20 0200 AC 04/20 PO 0719 Laboratory Tests 04/20 04/20 0848 0728 Chemistry Troponin I (<0.11 ng/ml) < 0.01 Hematology CBC w Diff NO MAN DIFF REQ WBC (4.8 - 10.8 /CUMM) 7.6 RBC (4.70 - 6.10 /CUMM) 2.79 L Hgb (14.0 - 18.0 G/DL) 9.6 L Hct (42 - 52 %) 27.8 L MCV (80.0 - 94.0 FL) 99.9 H MCH (27.0 - 31.0 PG) 34.3 H RDW (11.5 - 14.5 %) 14.7 H Plt Count (130 - 400 /CUMM) 204 MPV (7.4 - 10.4 FL) 6.5 L Gran % (42.2 - 75.2 %) 73.5 Lymphocytes % (20.5 - 51.1 %) 12.9 L Monocytes % (1.7 - 9.3 %) 11.6 H Eosinophils % (0 - 5 %) 1.7 Basophils % (0.0 - 2.0 %) 0.3 Absolute Granulocytes (1.4 - 6.5 /CUMM) 5.6 Absolute Lymphocytes (1.2 - 3.4 /CUMM) 1.0 L Absolute Monocytes (0.10 - 0.60 /CUMM) 0.9 H Absolute Eosinophils (0.0 - 0.7 /CUMM) 0.1 Absolute Basophils (0.0 - 0.2 /CUMM) 0 PUBS MCHC (33.0 - 37.0 G/DL) 34.3 04/19 2323 Chemistry Sodium (137 - 145 mmol/L) 133 L Potassium (3.5 - 5.1 mmol/L) 4.5 Chloride (98 - 107 mmol/L) 100 Carbon Dioxide (22 - 30 mmol/L) 22 Anion Gap (5 - 16) 10 BUN (9 - 20 mg/dL) 16 Creatinine (0.7 - 1.2 mg/dL) 0.7 Estimated GFR (>60 ml/min) > 60 BUN/Creatinine Ratio (7 - 25 %) 22.9 Glucose (65 - 99 mg/dL) 125 H Calcium (8.4 - 10.2 mg/dL) 8.6 Total Bilirubin (0.2 - 1.3 mg/dL) 0.6 AST (17 - 59 U/L) 22 ALT (21 - 72 U/L) 33 Alkaline Phosphatase (< 127 U/L) 100 Troponin I (<0.11 ng/ml) < 0.01 Total Protein (6.3 - 8.2 g/dL) 6.3 Albumin (3.5 - 5.0 g/dL) 3.8 Globulin (1.9 - 4.2 gm/dL) 2.5 Albumin/Globulin Ratio (1.1 - 2.2 %) 1.5 Coagulation PT (9.4 - 12.5 SEC) 10.5 INR (0.90 - 1.17) 1.00 APTT (25 - 37 SEC) < 20 L Hematology CBC w Diff NO MAN DIFF REQ WBC (4.8 - 10.8 /CUMM) 9.4 RBC (4.70 - 6.10 /CUMM) 3.21 L Hgb (14.0 - 18.0 G/DL) 11.1 L Hct (42 - 52 %) 32.2 L MCV (80.0 - 94.0 FL) 100.3 H MCH (27.0 - 31.0 PG) 34.6 H RDW (11.5 - 14.5 %) 14.3 Plt Count (/CUMM) MPV (7.4 - 10.4 FL) Gran % (42.2 - 75.2 %) 86.9 H Lymphocytes % (20.5 - 51.1 %) 8.6 L Monocytes % (1.7 - 9.3 %) 3.2 Eosinophils % (0 - 5 %) 1.1 Basophils % (0.0 - 2.0 %) 0.2 Absolute Granulocytes (1.4 - 6.5 /CUMM) 7.6 H Absolute Lymphocytes (1.2 - 3.4 /CUMM) 0.8 L Absolute Monocytes (0.10 - 0.60 /CUMM) 0.3 Absolute Eosinophils (0.0 - 0.7 /CUMM) 0.1 Absolute Basophils (0.0 - 0.2 /CUMM) 0 PUBS MCHC (33.0 - 37.0 G/DL) 34.5 Toxicology Serum Alcohol (<10 MG/DL) < 10.0 Vital Signs Date Time Temp Pulse Resp B/P Pulse O2 O2 Flow FiO2 Ox Delivery Rate 04/20 0837 99.0 70 20 142/68 94 Room Air 04/20 0315 97.3 67 20 96/60 95 Room Air 04/20 0101 99.4 68 16 117/65 94 Room Air 04/191 98.6 62 18 117/73 95 Room Air 04/19 2125 98 Room Air 04/19 190 97.6 62 18 166/81 96 Room Air
--- NOTE | 2016-04-20 10:25 | Cons- Cardiology ---
General Information and HPI Consulting Request Date of Consult: 04/20/16 Requested By: JOSE DE JESUS KEBEDE MD Reason for Consult: Preoperative Evaluation for hip fracture Source of Information: patient, old records Exam Limitations: unable to give history, dementia History of Present Illness: The patient is an 85-year-old man with a history of a pacemaker placed at [facility] on 11/22/2011. This is a Revo MRI compatible device. However the patient is confused regarding his pacemaker and the cannot give any details. He apparently has not been followed up by cardiology for this. The patient fell yesterday and fractured his left hip and is preoperative for hip fracture repair today. He gives no history of chest pain, shortness of breath, palpitations, etc. His EKG does not show any pacemaker activity indicating that most likely he is just overriding the pacemaker. A previous EKG in the past showed atrial pacing. Allergies/Medications Allergies: Coded Allergies: brinzolamide (From AZOPT) (UNKNOWN PER PT DAUGHTER 12/28/15) Home Med List: Amlodipine Besylate 5 MG TABLET 1 TAB PO DAILY HTN (Reported) Atorvastatin Calcium (Lipitor) 40 MG TABLET 1 TAB PO QPM CHOLESTEROL ( Reported) Cyanocobalamin (Vitamin B-12) 1,000 MCG TABLET 1 TAB PO DAILY SUPPLEMENT ( Reported) Divalproex Sodium (Depakote ER) 500 MG TAB.ER.24H 1 TAB PO QPM Mental health (Reported) Donepezil HCl (Aricept) 10 MG TABLET 1 TAB PO QPM MEMORY (Reported) Dorzolamide HCl/Timolol Maleat (Cosopt Eye Drops) 10 ML DROPS 1 GTT OD BID RIGHT EYE (Reported) Escitalopram Oxalate (Lexapro) 20 MG TABLET 1 TAB PO QAM MENTAL HEALTH ( Reported) Lorazepam (Ativan) 1 MG TABLET 1 TAB PO BID ANXIETY/SLEEP (Reported) Meloxicam (Mobic) 7.5 MG TABLET 1 TAB PO QAM PAIN/INFLAMMATION (Reported) Travoprost (Travatan Z) 5 ML DROPS 1 GTT OPH QPM BOTH EYES (Reported) Trazodone HCl 50 MG TABLET 1 TAB PO QAM PRN Mental health (Reported) Current Medications: Current Medications Sig/Chang Start time Last Medication Dose Route Stop Time Status Admin Acetaminophen 650 MG Q6P PRN 04/20 0145 AC PO Dextrose/Sodium 1,000 ML Q13H 04/20 0200 AC 04/20 Chloride IV 0239 Donepezil HCl 10 MG DAILY 04/20 1000 AC 04/20 PO 0809 Dorzolamide HCl 1 GTT BID 04/20 1000 AC 04/20 OPH 0810 Escitalopram Oxalate 20 MG DAILY 04/20 1000 AC 04/20 PO 0809 Influenza Virus 0.5 ML 1000 / 1000 DC Vaccine IM 04/20 1001 Latanoprost 1 GTT AT BEDTIME 04/20 2200 AC OPH Morphine Sulfate 2 MG Q4P PRN 04/20 0145 AC 04/20 IV 0719 Morphine Sulfate 4 MG ONCE ONE 04/19 2245 DC 04/19 IV 04/19 2245 224 Morphine Sulfate 0 .STK-MED ONE 04/19 2238 DC .ROUTE Morphine Sulfate 0 .STK-MED ONE 04/19 2112 DC .ROUTE Morphine Sulfate 2 MG ONCE ONE 04/19 2044 DC 04/19 IV 04/19 Oxycodone HCl 5 MG Q6P PRN 04/20 0200 AC 04/20 PO 0719 Review of Systems Review of Systems: Unable to be obtained due to pt's confused state. Past History Travel History Traveled to [place] past 21 day No Medical History Neurological: Alzheimer's disease EENT: glaucoma, macular degeneration Cardiovascular: pacemaker - PPM Respiratory: NONE Gastrointestinal: ACID REFLUX Hepatic: NONE Renal: NONE Musculoskeletal: osteoarthritis Psychiatric: depression Endocrine: NONE Blood Disorders: NONE Cancer(s): prostate cancer DIRECTOR OF DIETARY/Reproductive: NONE Surgical History Surgical History: ppm Family History Relations & Conditions If Any: Relation not specified for: *No pertinent family history Psychosocial History Smoking Status: Never Smoked Functional Ability ADLs Independent: dressing, eating, toileting, bathing. Ambulation: independent IADLs Needs Assist: shopping, housework, transportation, medication admin. Exam & Diagnostic Data Vital Signs and I&O Vital Signs Date Time Temp Pulse Resp B/P Pulse O2 O2 Flow FiO2 Ox Delivery Rate 04/20 0837 99.0 70 20 142/68 94 Room Air 04/20 0315 97.3 67 20 96/60 95 Room Air 04/20 0101 99.4 68 16 117/65 94 Room Air 04/19 2230 98.6 62 18 117/73 95 Room Air 04/19 2125 98 Room Air 04/19 1901 97.6 62 18 166/81 96 Room Air Intake & Output 04/20 1600 04/20 0800 04/20 0000 04/19 1600 04/19 0800 04/19 0000 Intake Total 375 Output Total 250 Balance 375 -250 Intake, IV 375 Intake, Oral 0 Number 0 Bowel Movements Output, Urine 250 Patient 158 lb 175 lb Weight Physical Exam: This is an elderly man in no acute distress. He is confused HEENT exam is normal Chest is clear to limited exam Heart reveals regular rhythm and no murmurs. There is a well healed pacemaker in the left anterior chest wall Abdomen is benign Extremities reveal left leg externally rotated, no edema Labs/Nelson Results: Laboratory Tests 04/20 04/20 0848 0728 Chemistry Troponin I (<0.11 ng/ml) < 0.01 Hematology CBC w Diff NO MAN DIFF REQ WBC (4.8 - 10.8 /CUMM) 7.6 RBC (4.70 - 6.10 /CUMM) 2.79 L Hgb (14.0 - 18.0 G/DL) 9.6 L Hct (42 - 52 %) 27.8 L MCV (80.0 - 94.0 FL) 99.9 H MCH (27.0 - 31.0 PG) 34.3 H RDW (11.5 - 14.5 %) 14.7 H Plt Count (130 - 400 /CUMM) 204 MPV (7.4 - 10.4 FL) 6.5 L Gran % (42.2 - 75.2 %) 73.5 Lymphocytes % (20.5 - 51.1 %) 12.9 L Monocytes % (1.7 - 9.3 %) 11.6 H Eosinophils % (0 - 5 %) 1.7 Basophils % (0.0 - 2.0 %) 0.3 Absolute Granulocytes (1.4 - 6.5 /CUMM) 5.6 Absolute Lymphocytes (1.2 - 3.4 /CUMM) 1.0 L Absolute Monocytes (0.10 - 0.60 /CUMM) 0.9 H Absolute Eosinophils (0.0 - 0.7 /CUMM) 0.1 Absolute Basophils (0.0 - 0.2 /CUMM) 0 PUBS MCHC (33.0 - 37.0 G/DL) 34.3 04/19 2323 Chemistry Sodium (137 - 145 mmol/L) 133 L Potassium (3.5 - 5.1 mmol/L) 4.5 Chloride (98 - 107 mmol/L) 100 Carbon Dioxide (22 - 30 mmol/L) 22 Anion Gap (5 - 16) 10 BUN (9 - 20 mg/dL) 16 Creatinine (0.7 - 1.2 mg/dL) 0.7 Estimated GFR (>60 ml/min) > 60 BUN/Creatinine Ratio (7 - 25 %) 22.9 Glucose (65 - 99 mg/dL) 125 H Calcium (8.4 - 10.2 mg/dL) 8.6 Total Bilirubin (0.2 - 1.3 mg/dL) 0.6 AST (17 - 59 U/L) 22 ALT (21 - 72 U/L) 33 Alkaline Phosphatase (< 127 U/L) 100 Troponin I (<0.11 ng/ml) < 0.01 Total Protein (6.3 - 8.2 g/dL) 6.3 Albumin (3.5 - 5.0 g/dL) 3.8 Globulin (1.9 - 4.2 gm/dL) 2.5 Albumin/Globulin Ratio (1.1 - 2.2 %) 1.5 Coagulation PT (9.4 - 12.5 SEC) 10.5 INR (0.90 - 1.17) 1.00 APTT (25 - 37 SEC) < 20 L Hematology CBC w Diff NO MAN DIFF REQ WBC (4.8 - 10.8 /CUMM) 9.4 RBC (4.70 - 6.10 /CUMM) 3.21 L Hgb (14.0 - 18.0 G/DL) 11.1 L Hct (42 - 52 %) 32.2 L MCV (80.0 - 94.0 FL) 100.3 H MCH (27.0 - 31.0 PG) 34.6 H RDW (11.5 - 14.5 %) 14.3 Plt Count (/CUMM) MPV (7.4 - 10.4 FL) Gran % (42.2 - 75.2 %) 86.9 H Lymphocytes % (20.5 - 51.1 %) 8.6 L Monocytes % (1.7 - 9.3 %) 3.2 Eosinophils % (0 - 5 %) 1.1 Basophils % (0.0 - 2.0 %) 0.2 Absolute Granulocytes (1.4 - 6.5 /CUMM) 7.6 H Absolute Lymphocytes (1.2 - 3.4 /CUMM) 0.8 L Absolute Monocytes (0.10 - 0.60 /CUMM) 0.3 Absolute Eosinophils (0.0 - 0.7 /CUMM) 0.1 Absolute Basophils (0.0 - 0.2 /CUMM) 0 PUBS MCHC (33.0 - 37.0 G/DL) 34.5 Toxicology Serum Alcohol (<10 MG/DL) < 10.0 Diagnostic Data EKG Results EKG shows sinus rhythm at a rate of 75. There is borderline right axis deviation. There is right bundle branch block. There is no pacemaker activity seen. CXR Results PATIENT: CHRISTINE CONTRERAS PRESENT AGE: 85 PATIENT ACCOUNT NO: [id number] : 29 LOCATION: [facility] ORDERING PHYSICIAN: FOSTER RIDLEY SERVICE DATE: 04/19/16 EXAM TYPE: RAD - XRY-PORTABLE CHEST XRAY EXAMINATION: CHEST 1 VIEW CLINICAL INFORMATION: Hip fracture. Preop. COMPARISON: None. TECHNIQUE: An AP view of the chest is provided. FINDINGS: The cardiac silhouette is not enlarged. Pacer leads overlie the right atrium and right ventricle. The mediastinal and hilar contours are unremarkable. There are neither pleural effusions nor pneumothoraces. There are no consolidations. There is mild coarsening to interstitial markings throughout both lungs. The osseous structures are unremarkable. IMPRESSION: No evidence for acute disease. Mild coarsening to interstitial markings throughout both lungs. DICTATED BY: MONIKA STEWART MD DATE/TIME DICTATED:04/19/162299 GSA COORDINATOR:EMILIO DATE/TIME TRANSCRIBED:04/19/162299 CONFIDENTIAL, DO NOT COPY WITHOUT APPROPRIATE AUTHORIZATION. <Electronically signed in Other Vendor System> SIGNED BY: MONIKA STEWART MD 04/19/16 1001 Assessment/Plan Assessment/Plan The patient is an 85-year-old man with a history of pacemaker in 2011. 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 However he is not pacing at this time probably because he is overriding the device. There is no other history of heart disease. He is not in congestive heart failure. He does not describe any chest pain or shortness of breath. His chest x-ray is unremarkable. His labs are acceptable. At this point I think the patient is an acceptable candidate for hip fracture repair. His risk is elevated because of underlying cardiac disease but is not prohibitive. No special precautions need to be taken regarding the pacemaker. He does not need telemetry. I will try to interrogate the pacemaker postoperatively because it apparently has not been followed up in some time. Copies To: JOSE DE JESUS KEBEDE MD Consult Acknowledgment - Thank you for your consult request.
--- NOTE | 2016-04-20 10:30 | Event Note ---
Event Note Event Note: After discussion with Dr. Bentley Morejon MD, patient is stable from a cardiac point of view for ORIF this afternoon. His revised cardiac index risk is low and he has no overt cardiac decompensation at present. He denies shortness of breath, chest pain palpitations, LE edema etc. Due to the fact that he has an EKG in NSR, he seems to be overriding his PPM. Dr. Maurer suggests no special precautions need to be taken for his PPM during the operation. He will return to the general medicine floor post-op and have his PPM interrogated at that time. Above was discussed with surgical PA construction technology instructor and she is aware patient is stable for the OR. Will await more information in regards to the time of his scheduled procedure and special post-operative instructions regarding his care.
[2016-04-20] MEDS ORDERED: DEPAKOTE ER500 M1 PO (10:52)
[2016-04-20] MEDS ORDERED: AMLODIPINE BESYL5 M1 PO (10:53)
--- NOTE | 2016-04-20 13:12 | Discharge Summary ---
Visit Information Visit Dates Admission Date: 04/19/16 Discharge Date: 04/22/2016 Hospital Course Course Attending Physician: JOSE DE JESUS CARRILLO MD Primary Care Physician: JOSE DE JESUS CARRILLO MD Consulting Request: Consulting Specialty: Orthopedics Consulting Physician: Jesse Romano MD Reason for Consult: FEMURE fracture Hospital Course: Mr. Conrad is a pleasant 85 year old male with PMH Alzheimer's dementia , depression, GERD, glaucoma, macular degeneration, prostate cancer status post radiation (in remission) and SSS status post pacemaker placement 6 years ago who was brought to [place] on 04/19/16 via ambulance after a witnessed mechanical fall at home (witnessed by his neighbor who subsequently called EMS). Patient's complaints at time of presentation include left hip pain exaggerated by movement, lower back pain and bilateral knee pain secondary to "arthritis". In the ED: Vital signs showed T 97.6, HR 62, RR 18, BP 166/81 and O2 saturation of 96% on room air. Labs showed WBC 9.4, macrocytic anemia to 11.1/32.2 (MCV 100.3), plt count unable to be obtained due to clumping, and BEP unremarkable except for slight hyponatremia to 133. Troponin negative to <0.01. INR normal to 1.00. Serum alcohol <10. CT head/Cspine showed no acute intracranial pathology, no c-spine trauma, multinodular thyroid gland. Left hip Xray showed slightly displaced intertrochanteric fracture with varus deformity. CXR showed no evidence of acute disease, though mild coarsening to interstitial markings noted bilatereally. EKG showed normal sinus rhythm at rate of 87 with RBBB, QTC 510. Patient is admitted to the general medicine floor and the follow is the current management: 1. Left mildly displaced intertrochanteric hip fracture/ BLOOD LOSS patient was seen by cardiology and Ortho Surgery. he underwent Left hip intramedullary hip screw surgery(ORIF). His vital signs and H&H were stable before and after surgery. We is started the patient on enoxaparin 40 mg daily for 2 weeks for DVT prophylaxis and then follwo up with for re- evaluation.patient hg dropped to 6.8 on second day after surgery and we transfused him with 1 PRBC upon discharge,no signs of active bleeding was observed. Patient was discharged to [facility] and should follow-up with surgery in 14 days for removal of the stitches. CBC should be checked on Monday08/19/2016. 3.Hypoxia After the surgery patient was desaturated on room air and he put on 3 L. echocardiogram was performed, by cardiology recommendations. patient condition improved on 1 day and he was 2. Alzheimer's dementia/depression, bipolar/glaucoma/HTN With continue patient's home medication of donezepil,latanoprost and dorzolamide , Depakote, Lexapro. we hold norvasc given to hospitalization due to borderline low blood pressure. 3.multinodular goiter in CT scan: T3 was mildy decreased. patinet should follow up with outpatient thyroid ultrasound and repeat LFTs. Allergies: Coded Allergies: brinzolamide (From AZOPT) (UNKNOWN PER PT DAUGHTER 12/28/15) Significant Procedures: PATIENT: CHRISTINE CONRAD PRESENT AGE: 85 PATIENT ACCOUNT NO: [id number] DATE OF : 29 ADMIT/SERVICE DATE: 04/19/16 ATTENDING PHYSICIAN[facility] Operative/Inv Procedure Report Surgery Date: 04/20/16 Name of Procedure: Left hip intramedullary hip screw Pre-Operative Diagnosis: Left intertrochanteric hip fracture Post-Operative Diagnosis: Left intertrochanteric hip fracture Estimated Blood Loss: 50ml to 100ml Surgeon/Strapping Machine Operator: Jesse Romano M.D. Anesthesia: laryngeal mask airway Implants: [place] gamma nail 125 10x 170 mm 90 x 10.5 mm lag screw 40 x 5 mm distal interlocking screw Complications: None Condition: Stable to PACU Operative Indication: This is an 85-year-old male who fell and sustained a left intertrochanteric hip fracture. Risks and benefits of the procedure were discussed with the patient at length. Risks include but are not limited to nerve damage, muscle damage, infection, blood loss, blood clots, pulmonary embolus, and even . The patient agreed to the above risks and elected to proceed with surgery. Operative/Procedure Note Note: The patient was placed supine on the operating room table. Anesthesia was induced by the anesthesia team. The patient received IV antibiotics prior to incision. A timeout was performed prior to incision. The site marking was visualized prior to incision. The patient was positioned on the fracture table with the injured extremity in a well-padded traction boot. The contralateral lower extremity was placed in flexion and abduction in a well-padded leg buckner. Traction was applied to the injured extremity and the fracture was reduced under x-ray guidance. The lower extremitiy was prepped and draped in the normal sterile fashion. An incision was made proximal and posterior to the greater trochanter. The fascia was incised. Blunt dissection was performed down to the tip of the greater trochanter. A guidewire was inserted into the tip the trochanter and noted to be in the femoral shaft on AP and lateral x-rays. A soft tissue protector was inserted over the wire. An opening reamer was used and the femur was reamed down to the lesser trochanter. The mauricio was then inserted. X-rays were taken to ensure adequate positioning. An incision was made over the lateral femur through the skin as well as fascia. The guide was then applied to the lateral aspect of the femur. A guidewire was inserted under x-ray guidance into the center center position in the femoral head. This was measured. This was then reamed to the tip of the guidewire. The lag screw was then placed. The fracture was compressed. Next the distal interlocking screw guide was applied. The skin and fascia were incised. The guide was applied to the lateral aspect of the femur. This was drilled and measured. The distal interlocking screw was then placed. The set screw was then placed. Final x-rays were taken to ensure adequate reduction and positioning of the hardware. All wounds were copiously irrigated. The fascia was closed with #1 Vicryl suture in a simple interrupted fashion. The skin was closed with 2-0 Vicryl suture and santana. A dry sterile dressing was placed and patient was transferred to PACU in stable condition. DICTATED BY: JESSE ROMANO MD DATE/TIME DICTATED:04/20/161815 NARROW GAUGE ENGINEER:SIA DATE/TIME TRANSCRIBED:04/20/161815 REPORT NUMBER:[id number] CONFIDENTIAL, DO NOT COPY WITHOUT APPROPRIATE AUTHORIZATION. <Electronically signed by JESSE ROMANO MD> 04/20/161817 Disposition Summary Disposition Principal Diagnosis: femure fracture Additional Diagnosis: depression dementia Discharge Disposition: SNF Discharge Instructions General Discharge Information Code Status: Full Code Patient's Diet: regular Patient's Activity: as tolerated Follow-Up Instructions/Appts: -Please follow-up with your primary care provider within 7 days after discharge. -Please continue using enoxaparin for 2 weeks. -Please follow-up with your orthopedic surgeon within 2 weeks after discharge. He will decide if you need to continue lovenox for longer than 2 weeks. -please check CBC on Monday04/25/2016. -We have made changes to your home medications, please read the instructions carefully. -Please come back to the hospital if your symptoms got worse. -Please have a thyroid ultrasound as an outpatient. Dr. Carrillo will provide you with a prescription for this and follow up the results. Medications at Discharge Discharge Medications: Stop taking the following medications: Meloxicam (Mobic) 7.5 MG TABLET ORAL Every night as needed for as needed Amlodipine Besylate (Amlodipine Besylate) 5 MG TABLET ORAL DAILY Qty = 30 Continue taking these medications: Cyanocobalamin (Vitamin B-12) 1,000 MCG TABLET 1 Tablet ORAL DAILY Comments: PER PT DAUGHTER Atorvastatin Calcium (Lipitor) 40 MG TABLET 1 Tablet ORAL Every night Comments: PER PT DAUGHTER Donepezil HCl (Aricept) 10 MG TABLET 1 Tablet ORAL Every night Comments: PER PT DAUGHTER Escitalopram Oxalate (Lexapro) 20 MG TABLET 1 Tablet ORAL Every Morning Comments: PER PT DAUGHTER Lorazepam (Ativan) 1 MG TABLET 1 Tablet ORAL TWICE DAILY Comments: PER PT DAUGHTER Trazodone HCl (Trazodone HCl) 50 MG TABLET 1 Tablet ORAL Every night as needed for Mental health Comments: PER PT DAUGHTER Travoprost (Travatan Z) 5 ML DROPS 1 Drop In the eye Every night Comments: PER PT DAUGHTER Dorzolamide HCl/Timolol Maleat (Cosopt Eye Drops) 10 ML DROPS 1 Drop Right Eye TWICE DAILY Comments: PER PT DAUGHTER Divalproex Sodium (Depakote ER) 500 MG TAB.ER.24H 1 Tablet ORAL Every night Qty = 30 Start taking the following new medications: Oxycodone HCl (Oxycodone HCl) 5 MG TABLET 5 Milligram ORAL EVERY SIX HOURS NEEDED as needed for PAIN SCALE 7-10 ( SEVERE) Qty = 5 No Refills Enoxaparin Sodium (Lovenox) 40 MG/0.4 ML SYRINGE 0.4 Milliliters Inject into fatty tissue DAILY Days = 14 No Refills Instructions: FOR 2 WEEKS Copies To: BERTIN ANGELO,JESSE; GILDA ANGELO,MANUEL [place]; DELIO ANGELO,JOSE DE JESUS
[2016-04-20 16:19] VITALS: BP 118/58
--- NOTE | 2016-04-20 18:18 | Operative Report ---
Operative/Inv Procedure Report Surgery Date: 04/20/16 Name of Procedure: Left hip intramedullary hip screw Pre-Operative Diagnosis: Left intertrochanteric hip fracture Post-Operative Diagnosis: Left intertrochanteric hip fracture Estimated Blood Loss: 50ml to 100ml Surgeon/First Aid Instructor: Trav Romano M.D. Anesthesia: laryngeal mask airway Implants: Melissa gamma nail 125 10x 170 mm 90 x 10.5 mm lag screw 40 x 5 mm distal interlocking screw Complications: None Condition: Stable to PACU Operative Indication: This is an 85-year-old male who fell and sustained a left intertrochanteric hip fracture. Risks and benefits of the procedure were discussed with the patient at length. Risks include but are not limited to nerve damage, muscle damage, infection, blood loss, blood clots, pulmonary embolus, and even . The patient agreed to the above risks and elected to proceed with surgery. Operative/Procedure Note Note: The patient was placed supine on the operating room table. Anesthesia was induced by the anesthesia team. The patient received IV antibiotics prior to incision. A timeout was performed prior to incision. The site marking was visualized prior to incision. The patient was positioned on the fracture table with the injured extremity in a well-padded traction boot. The contralateral lower extremity was placed in flexion and abduction in a well-padded leg buckner. Traction was applied to the injured extremity and the fracture was reduced under x-ray guidance. The lower extremitiy was prepped and draped in the normal sterile fashion. An incision was made proximal and posterior to the greater trochanter. The fascia was incised. Blunt dissection was performed down to the tip of the greater trochanter. A guidewire was inserted into the tip the trochanter and noted to be in the femoral shaft on AP and lateral x-rays. A soft tissue protector was inserted over the wire. An opening reamer was used and the femur was reamed down to the lesser trochanter. The mauricio was then inserted. X-rays were taken to ensure adequate positioning. An incision was made over the lateral femur through the skin as well as fascia. The guide was then applied to the lateral aspect of the femur. A guidewire was inserted under x-ray guidance into the center center position in the femoral head. This was measured. This was then reamed to the tip of the guidewire. The lag screw was then placed. The fracture was compressed. Next the distal interlocking screw guide was applied. The skin and fascia were incised. The guide was applied to the lateral aspect of the femur. This was drilled and measured. The distal interlocking screw was then placed. The set screw was then placed. Final x-rays were taken to ensure adequate reduction and positioning of the hardware. All wounds were copiously irrigated. The fascia was closed with #1 Vicryl suture in a simple interrupted fashion. The skin was closed with 2-0 Vicryl suture and santana. A dry sterile dressing was placed and patient was transferred to PACU in stable condition.
--- NOTE | 2016-04-20 18:38 | RADIOLOGY REPORT ---
EXAMINATION: Left hip intraoperative fluoroscopy, ORIF CLINICAL INFORMATION: Intratrochanteric fracture of left hip. Intraoperative fluoroscopy for left hip ORIF COMPARISON: Left hip 04/19/2016, 9:15 PM TECHNIQUE: Intraoperative fluoroscopy. 2 spot views. FINDINGS: Gamma nail placed into the left hip. Orthopedic components in good position. IMPRESSION: Status post ORIF left hip fracture.
[2016-04-20 20:03] LABS: ABSOLUTE BASOPHIL COUNT 0 /CUMM (0.0-0.2); ABSOLUTE EOSINOPHIL COUNT 0.3 /CUMM (0.0-0.7); ABSOLUTE GRANULOCYTE CT 6.8 /CUMM (1.4-6.5); ABSOLUTE MONOCYTE COUNT 1.1 /CUMM (0.10-0.60); BASOPHIL % 0.4 % (0.0-2.0); EOSINOPHIL % 3.4 % (0-5); GRANULOCYTE % 73.2 % (42.2-75.2); HEMATOCRIT 29.2 % (42-52); MEAN CORPUSCULAR HGB 34.5 PG (27.0-31.0); MEAN CORPUSCULAR HGB CONC 34.3 G/DL (33.0-37.0); MEAN CORPUSCULAR VOLUME 100.7 FL (80.0-94.0); MEAN PLATELET VOLUME 6.8 FL (7.4-10.4); PLATELET COUNT 195 /CUMM (130-400); RBC DISTRIBUTION WIDTH 14.7 % (11.5-14.5); WHITE BLOOD CELL COUNT 9.3 /CUMM (4.8-10.8)
--- NOTE | 2016-04-20 22:31 | PN- Orthopedic ---
Subjective Subjective: poc s/p imhs left hip no major complaints denies cp, sob, no n+v with diet Objective Vital Signs and I&Os Vital Signs Date Time Temp Pulse Resp B/P Pulse O2 O2 Flow FiO2 Ox Delivery Rate 04/20 1619 99.1 71 19 118/58 90 Nasal 2.0L Cannula 04/20 1446 Room Air 04/20 0837 99.0 70 20 142/68 94 Room Air 04/20 0315 97.3 67 20 96/60 95 Room Air 04/20 0101 99.4 68 16 117/65 94 Room Air 04/19 2231 98.6 62 18 117/73 95 Room Air Intake & Output 04/20 1600 04/20 0800 04/20 0000 04/19 1600 04/19 0800 04/19 0000 Intake Total 600 375 Output Total 500 250 Balance 100 375 -250 Intake, IV 600 375 Intake, Oral 0 0 Number 0 Bowel Movements Output, Urine 500 250 Patient 158 lb 175 lb Weight Physical Exam: cv: rrr lungs: clear abd: soft, +bs ext: left thigh soft drsg dry distal cms intact Assessment/Plan Assessment/Plan ortho stable plan lovenox 40mg sq daily for dvt prophylaxis for one month may be oob in am WBAT left le abx for 24 hours xray left hip in am will need str
[2016-04-21] VITALS: BP 106/58
[2016-04-21 00:18] VITALS: BP 106/58
--- NOTE | 2016-04-21 06:45 | PN- Housestaff ---
Subjective Follow-up For: Left hip fracture s/p ORIF Subjective: Patient seen and examined at bedside this AM. He denies any pain, fever, chills, chest pain, shortness of breath, wheezing. He is comfortable on the bed. Review of Systems Constitutional: Denies: chills, fever, malaise. EENTM: Denies: blurred vision, visual changes, hearing changes, nasal congestion. Cardiovascular: Denies: chest pain, palpitations. Respiratory: Denies: cough, short of breath, sputum production. Gastrointestinal: Denies: abdominal pain. Genitourinary: Denies: dysuria. Musculoskeletal: Denies: back pain, joint pain. Skin: Denies: change in skin color, change in hair/nails. Neurological/Psychological: Denies: confusion, headache, numbness. Hematologic/Endocrine: Denies: polydipsia. Objective Last 24 Hrs of Vital Signs/I&O Vital Signs Date Time Temp Pulse Resp B/P Pulse O2 O2 Flow FiO2 Ox Delivery Rate 04/21 0725 98.3 79 20 104/62 97 Room Air 04/21 0018 97.8 87 20 106/58 95 Nasal 3.0L Cannula 04/21 0000 97.8 87 20 106/58 02/ 0000 95 Nasal 2.0L Cannula 04/20 1619 99.1 71 19 118/58 90 Nasal 2.0L Cannula 04/20 1600 Nasal 1.0L Cannula 04/20 1446 Room Air Intake & Output 04/21 1600 04/21 0800 04/21 0000 Intake Total 600 465 Output Total 100 Balance 500 465 Intake, IV 600 225 Intake, Oral 240 Output, Urine 100 Physical Exam General Appearance: Alert, Oriented X3, Cooperative, No Acute Distress Skin: No Rashes, Scattered healing bruises HEENT: Atraumatic, Mucous Membr. moist/pink Neck: Supple, No thryomegaly Lymphatic: Cervical nl Cardiovascular: Regular Rate, Normal S1, Normal S2 Lungs: Normal Air Movement, Bibasilar crackles Abdomen: Normal Bowel Sounds, Soft, No Tenderness Neurological: Normal Speech, Normal Tone, Cranial Nerves 3-12 NL Extremities: No Clubbing, No Cyanosis, No Edema Vascular: Pulses Symmetrical Current Medications: Current Medications Sig/Chang Start time Last Medication Dose Route Stop Time Status Admin Acetaminophen 1,000 MG Q8P PRN 04/20 1600 AC N/A 1 UNIT IV Acetaminophen 650 MG Q6P PRN 04/20 0145 AC PO Amlodipine Besylate 5 MG DAILY 04/21 1000 CAN PO Atorvastatin Calcium 40 MG QPM 04/20 2200 AC 04/20 PO 2149 Cefazolin Sodium 2 GM Q8H 04/21 0135 DC 04/21 N/A 1 UNIT IV 04/21 1004 1013 Cyanocobalamin 1,000 MCG DAILY 04/21 1000 AC 04/21 PO 0954 Dextrose/Sodium 1,000 ML Q13H 04/20 0200 AC 04/20 Chloride IV 1408 Divalproex Sodium 500 MG QPM 04/20 2200 AC 04/20 PO 2148 Donepezil HCl 10 MG DAILY 04/20 1000 AC 04/21 PO 0954 Dorzolamide HCl 1 GTT BID 04/20 1000 AC 04/21 OPH 0955 Enoxaparin Sodium 40 MG DAILY 04/21 1000 AC 04/21 SC 0955 Escitalopram Oxalate 20 MG DAILY 04/20 1000 AC 04/21 PO 0954 Fentanyl Citrate 250 MCG .STK-MED ONE 04/20 1700 DC IM 04/20 1701 Hydromorphone HCl 0.8 MG Q4-6 PRN PRN 04/20 1530 DC IV Hydromorphone HCl 0.6 MG Q4-6 PRN PRN 04/20 1530 DC IV Latanoprost 1 GTT AT BEDTIME 04/20 2200 AC 04/20 OPH 2149 Lorazepam 1 MG BID 04/20 2200 AC 04/20 PO 2149 Morphine Sulfate 2 MG Q4P PRN 04/20 0145 DC 04/20 IV 1042 Oxycodone HCl 5 MG Q6P PRN 04/20 0200 AC 04/20 PO 0719 Trazodone HCl 50 MG QAM PRN 04/20 1100 AC PO Last 24 Hrs of Lab/Nelson Results Last 24 Hrs of Labs/Mics: Laboratory Tests 04/21/16 0625: Anion Gap 9, Estimated GFR > 60, BUN/Creatinine Ratio 25.0, CBC w Diff NO MAN DIFF REQ, RBC 2.35 L, MCV 100.4 H, MCH 34.7 H, RDW 14.6 H, MPV 6.9 L, Gran % 77.6 H, Lymphocytes % 8.6 L, Monocytes % 10.5 H, Eosinophils % 2.7, Basophils % 0.6, Absolute Granulocytes 6.6 H, Absolute Lymphocytes 0.7 L, Absolute Monocytes 0.9 H, Absolute Eosinophils 0.2, Absolute Basophils 0, PUBS MCHC 34.5 04/21/16 0130: Urinalysis LIGHT H, Urine Color YEL, Urine Clarity HAZY H, Urine pH 6.0, Ur Specific [place] 1.020, Urine Protein TRACE H, Urine Ketones TRACE H, Urine Nitrite NEG, Urine Bilirubin NEG, Urine Urobilinogen 0.2, Ur Leukocyte Esterase NEG, Ur Microscopic SEDIMENT EXAMINED, Urine RBC 5-10 H, Urine WBC RARE, Ur Epithelial Cells FEW, Hyaline Casts 1-3 H, Urine Mucus MOD H, Urine Hemoglobin MOD H, Urine Glucose NEG 04/20/16 1940: Anion Gap 10, Estimated GFR > 60, BUN/Creatinine Ratio 22.2, CBC w Diff NO MAN DIFF REQ, RBC 2.90 L, MCV 100.7 H, MCH 34.5 H, RDW 14.7 H, MPV 6.8 L, Gran % 73.2, Lymphocytes % 10.7 L, Monocytes % 12.3 H, Eosinophils % 3.4, Basophils % 0.4, Absolute Granulocytes 6.8 H, Absolute Lymphocytes 1.0 L, Absolute Monocytes 1.1 H, Absolute Eosinophils 0.3, Absolute Basophils 0, PUBS MCHC 34.3 Microbiology 04/20 1800 URINE ROUT: Urine Culture - RES Orders Radiology Findings: EXAMINATION: XR HIP, LEFT CLINICAL INFORMATION: Status post ORIF left hip fracture 04/20/2016. COMPARISON: Left hip radiographs dated 04/19/2016. Intraoperative fluoroscopic images dated 04/20/2016. TECHNIQUE: Two views of the left hip. FINDINGS: There are surgical changes status post open reduction and internal fixation of an intertrochanteric left hip fracture. The orthopedic hardware is unchanged in position when compared with intraoperative fluoroscopic images dated 04/20/2016. The intertrochanteric fracture remains unchanged in appearance. No new fracture is seen. Prostate seeds are seen overlying the symphysis pubis. IMPRESSION: 1. Status post open reduction internal fixation of a left hip intertrochanteric fracture on 04/20/2016. Orthopedic hardware is stable in position when compared with intraoperative fluoroscopic images. 2. The intertrochanteric fracture is unchanged in appearance. Assessment/Plan Assessment: Mr. 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 Patient reported that a few boxes fell on him while in his garage, resulting in a fall without head strike and with noted subsequent pain to his left hip. Patient denied head strike or loss of consciousness. Patient complaints at time of presentation include left hip pain exaggerated by movement, lower back pain and bilateral knee pain secondary to "arthritis". In the ED: Vital signs showed T 97.6, HR 62, RR 18, BP 166/81 and O2 saturation of 96% on room air. Labs showed WBC 9.4, macrocytic anemia to 11.1/32.2 (MCV 100.3), plt count unable to be obtained due to clumping, and BEP unremarkable except for slight hyponatremia to 133. Troponin negative to <0.01. INR normal to 1.00. Serum alcohol <10. CT head/Cspine showed no acute intracranial pathology, no c-spine trauma, multinodular thyroid gland. Left hip Xray showed slightly displaced intertrochanteric fracture with varus deformity. CXR showed no evidence of acute disease, though mild coarsening to interstitial markings noted bilatereally. EKG showed normal sinus rhythm at rate of 87 with RBBB, QTC 510. Patient is admitted to the general medicine floor and the follow is the current management: 1. Left mildly displaced intertrochanteric hip fracture * Hip XR showed slightly displaced intertrochanteric fracture with varus deformity of left hip * Cardiac clearance with Dr. 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 PPM for sick sinus syndrome/trifasicular block * Records obtained from [facility] and patient had PPM due to several syncopal episodes and noted sick sinus syndrome * Patient has not had PPM interrogated recently * Will discuss with cardiology about possible interrogation today * Troponin negative x 2, EKG showed NSR with RBBB and prolonged QTC to 510 3. Alzheimer's dementia * Continue donepezil 10 mg PO daily 4. Depression * Patient's mood appears appropriate, no acute SI/HI * Continue escitalopram 10 mg PO daily * Depakote 500 mg PO QPM 5. Glaucoma * Continue latanoprost and dorzolamide 6. Influenza vaccination * Patient received flu shot on 04/20/16 FULL CODE DVTP: ALPS Diet: NPO Mild-severe pain pathway FULL CODE Diet: NPO DVTP: Alps Mild-severe pain pathway Problem List: 1. Fracture, intertrochanteric, left femur 2. Alzheimer's dementia 3. Depression 4. Pacemaker Pain Ratin Pain Location: n /a Pain Goal: Remain pain free Pain Plan: Tylenol for mild pain,r oxicodone 5 mg PO Q6P for severe pain. Tomorrow's Labs & Rationales: CBC (monitor H&H that dropped >1 unit post op), BEP (monitor hyponatremia)
[2016-04-21 07:25] VITALS: BP 104/62
[2016-04-21 08:05] LABS: ABSOLUTE BASOPHIL COUNT 0 /CUMM (0.0-0.2); ABSOLUTE EOSINOPHIL COUNT 0.2 /CUMM (0.0-0.7); ABSOLUTE GRANULOCYTE CT 6.6 /CUMM (1.4-6.5); ABSOLUTE LYMPH COUNT 0.7 /CUMM (1.2-3.4); ABSOLUTE MONOCYTE COUNT 0.9 /CUMM (0.10-0.60); GRANULOCYTE % 77.6 % (42.2-75.2)
--- NOTE | 2016-04-21 08:28 | PN- Orthopedic ---
See Addendum Subjective Subjective: Patient reporting no acute overnight events. He feels that pain has been well controlled. He denies nausea and vomitting, has been tolerating po. Denies chest pain, shortness of breath and difficulty breathing. Objective Vital Signs and I&Os Vital Signs Date Time Temp Pulse Resp B/P Pulse O2 O2 Flow FiO2 Ox Delivery Rate 04/21 0725 98.3 79 20 104/62 97 Room Air 04/21 0018 97.8 87 20 106/58 95 Nasal 3.0L Cannula 04/21 0000 97.8 87 20 106/58 04/21 0000 95 Nasal 2.0L Cannula 04/20 1619 99.1 71 19 118/58 90 Nasal 2.0L Cannula 04/20 1600 Nasal 1.0L Cannula 04/20 1446 Room Air 04/20 0837 99.0 70 20 142/68 94 Room Air Intake & Output 04/21 1600 04/21 0800 04/21 0000 04/20 1600 04/20 0800 04/20 0000 Intake Total 465 600 375 Output Total 100 500 250 Balance -100 465 100 375 -250 Intake, IV 225 600 375 Intake, Oral 240 0 0 Number 0 Bowel Movements Output, Urine 100 500 250 Patient 158 lb 175 lb Weight Physical Exam: General: Alert and oriented x3, no acute distress Cardiac: RRR, s1s2 Pulmonary: CTA bilaterally Abdomen: Non-tender, non-distended Extremiteis: Moves all extremites, distal sensation intact. Motor 5/5 in plantar and dorsi flexion. SKin warm and well perfused. DP pulses palpable. Bilateral calves soft and non-tender Surgical site: Dressing dry and intact, thigh compartment soft Assessment/Plan Assessment/Plan This is a 85 year old male, POD 1, s/p ORIF left intertrochanteric femur fracture -Activity: OOB today, WBAT -DVT ppx: Lovenox daily, ALPS -Pain: Continue current pain regimen -Dressing: To be changed by surgery tomorrow, POD 2 All other care primarily by medicine team
[2016-04-21 08:36] LABS: BASOPHIL % 0.6 % (0.0-2.0); EOSINOPHIL % 2.7 % (0-5); MEAN CORPUSCULAR HGB 34.7 PG (27.0-31.0); MEAN CORPUSCULAR HGB CONC 34.5 G/DL (33.0-37.0); MEAN CORPUSCULAR VOLUME 100.4 FL (80.0-94.0); MEAN PLATELET VOLUME 6.9 FL (7.4-10.4); PLATELET COUNT 147 /CUMM (130-400); RBC DISTRIBUTION WIDTH 14.6 % (11.5-14.5); RED BLOOD CELL CT 2.35 /CUMM (4.70-6.10); WHITE BLOOD CELL COUNT 8.6 /CUMM (4.8-10.8)
--- NOTE | 2016-04-21 08:38 | Patient Discharge Instructions ---
Discharge Instructions General Discharge Information You were seen/treated for: Femur fracture You had these procedures: ORIF Special Instructions: -Please follow-up with your primary care provider within 7 days after discharge. -Please continue using enoxaparin for 2 weeks. -Please follow-up with your orthopedic surgeon within 2 weeks after discharge. He will decide if you need to continue lovenox for longer than 2 weeks. -please check CBC on Monday04/25/2016. -We have made changes to your home medications, please read the instructions carefully. -Please come back to the hospital if your symptoms got worse. -Please have a thyroid ultrasound as an outpatient. Dr. Carrillo will provide you with a prescription for this and follow up the results. Diet Recommended Diet: Heart Healthy Activity Full Activity/No Limits: Yes (as tolerated) Acute Coronary Syndrome Inclusion Criteria At DC or during hospital stay patient has or had the following: ACS DIAGNOSIS No Discharge Core Measures Meds if any: Prescribed or Continued at Discharge Meds if any: NOT Prescribed or Continued at Discharge Congestive Heart Failure Inclusion Criteria At DC or during hospital stay patient has or had the following: CHF DIAGNOSIS No Discharge Core Measures Meds if any: Prescribed or Continued at Discharge Meds if any: NOT Prescribed or Continued at Discharge Cerebrovascular accident Inclusion Criteria At DC or during hospital stay patient has or had the following: CVA/TIA Diagnosis No Discharge Core Measures Meds if any: Prescribed or Continued at Discharge Meds if any: NOT Prescribed or Continued at Discharge Venous thromboembolism Inclusion Criteria VTE Diagnosis No VTE Type NONE VTE Confirmed by (Test) NONE Discharge Core Measures - Per Current guidelines, there needs to be overlap - treatment for the first 5 days of Warfarin therapy. - If discharged on Warfarin prior to 5 days of - overlap therapy, the patient will need to be - assessed for post discharge needs including - *Post discharge parental anticoagulation - *Warfarin and/or parental anticoagulation education - *Follow up date to check INR post discharge At least 5 days overlap therapy as Inpatient No Meds if any: Prescribed or Continued at Discharge Note: Overlap Therapy is Warfarin and Anticoagulant Meds if any: NOT Prescribed or Continued at Discharge
[2016-04-21 08:43] LABS: HEMATOCRIT 23.6 % (42-52)
--- NOTE | 2016-04-21 09:37 | PN- Att Addend ---
Attending Addendum Attending Brief Note Patient complains of pain left hip, requiring 2 liter oxygen General Appearance: Alert, No Acute Distress Skin: Grossly normal HEENT: PEERLA Neck: Supple, No JVD Cardiovascular: Regular Rate, Normal S1, Normal S2, No Murmurs Lungs: Minimal bibasilar crackles Abdomen: Normal Bowel Sounds, Soft, No Tenderness Neurological: Normal Speech, Strength at 5/5 X4 Ext, Cranial Nerves 3-12 NL, Reflexes 2+ Extremities: No Clubbing, No Cyanosis, No Edema Vascular: Normal Pulses Assessment 85-year-old with history of dementia, glaucoma, history of pacemaker placement who does not at this point follow cardiology presenting with left slightly displaced hip fracture status post what likely appears to be a mechanical fall based on limited history but the patient and his caregiver. He is currently status post hip repair postoperative day #1. Pain is minimal however requiring oxygen likely from compressive atelectasis. We will get physical therapy evaluation and plan for placement to rehabilitation. Plan Incentive spirometry Taper oxygen as tolerated Discontinue Dilaudid, Tylenol for [id number] pain and Roxicodone 1 tab every 6 hours for severe pain Lovenox for DVT prophylaxis for total 6 weeks Continue other home meds Current Medications Sig/Chang Start time Last Medication Dose Route Stop Time Status Admin Acetaminophen 1,000 MG Q8P PRN 04/20 1600 AC N/A 1 UNIT IV Acetaminophen 650 MG Q6P PRN 04/20 0145 AC PO Amlodipine Besylate 5 MG DAILY 04/21 1000 CAN PO Atorvastatin Calcium 40 MG QPM 04/20 2200 AC 04/20 PO 2149 Cefazolin Sodium 2 GM Q8H 04/21 0135 AC 04/21 N/A 1 UNIT IV 04/21 1004 0106 Cyanocobalamin 1,000 MCG DAILY 04/21 1000 AC PO Dextrose/Sodium 1,000 ML Q13H 04/20 0200 AC 04/20 Chloride IV 1408 Divalproex Sodium 500 MG QPM 04/20 2200 AC 04/20 PO 2148 Donepezil HCl 10 MG DAILY 04/20 1000 AC 04/20 PO 0809 Dorzolamide HCl 1 GTT BID 04/20 1000 AC 04/20 OPH 2149 Enoxaparin Sodium 40 MG DAILY 04/21 1000 AC SC Escitalopram Oxalate 20 MG DAILY 04/20 1000 AC 04/20 PO 0809 Fentanyl Citrate 250 MCG .STK-MED ONE 04/20 1700 DC IM 04/20 1701 Hydromorphone HCl 0.8 MG Q4-6 PRN PRN 04/20 1530 DC IV Hydromorphone HCl 0.6 MG Q4-6 PRN PRN 04/20 1530 AC IV Influenza Virus 0.5 ML 1000 04/20 1000 DC Vaccine IM 04/20 1001 Latanoprost 1 GTT AT BEDTIME 04/20 2199 AC 04/20 OPH 2149 Lorazepam 1 MG BID 04/20 2199 AC 04/20 PO 2149 Morphine Sulfate 2 MG Q4P PRN 04/20 0145 DC 04/20 IV 1042 Oxycodone HCl 5 MG Q6P PRN 04/20 0200 AC 04/20 PO 0719 Trazodone HCl 50 MG QAM PRN 04/20 1100 AC PO Laboratory Tests 04/21 04/21 0625 0130 Chemistry Sodium (137 - 145 mmol/L) 134 L Potassium (3.5 - 5.1 mmol/L) 4.4 Chloride (98 - 107 mmol/L) 103 Carbon Dioxide (22 - 30 mmol/L) 22 Anion Gap (5 - 16) 9 BUN (9 - 20 mg/dL) 20 Creatinine (0.7 - 1.2 mg/dL) 0.8 Estimated GFR (>60 ml/min) > 60 BUN/Creatinine Ratio (7 - 25 %) 25.0 Hematology CBC w Diff NO MAN DIFF REQ WBC (4.8 - 10.8 /CUMM) 8.6 RBC (4.70 - 6.10 /CUMM) 2.35 L Hgb (14.0 - 18.0 G/DL) 8.1 L Hct (42 - 52 %) 23.6 L MCV (80.0 - 94.0 FL) 100.4 H MCH (27.0 - 31.0 PG) 34.7 H RDW (11.5 - 14.5 %) 14.6 H Plt Count (130 - 400 /CUMM) 147 MPV (7.4 - 10.4 FL) 6.9 L Gran % (42.2 - 75.2 %) 77.6 H Lymphocytes % (20.5 - 51.1 %) 8.6 L Monocytes % (1.7 - 9.3 %) 10.5 H Eosinophils % (0 - 5 %) 2.7 Basophils % (0.0 - 2.0 %) 0.6 Absolute Granulocytes (1.4 - 6.5 /CUMM) 6.6 H Absolute Lymphocytes (1.2 - 3.4 /CUMM) 0.7 L Absolute Monocytes (0.10 - 0.60 /CUMM) 0.9 H Absolute Eosinophils (0.0 - 0.7 /CUMM) 0.2 Absolute Basophils (0.0 - 0.2 /CUMM) 0 PUBS MCHC (33.0 - 37.0 G/DL) 34.5 Urines Urinalysis LIGHT H Urine Color (YEL,AMB,STR) YEL Urine Clarity (CLEAR) HAZY H Urine pH (5.0 - 8.0) 6.0 Ur Specific [place] (1.001 - 1.035) 1.020 Urine Protein (NEG,<30 MG/DL) TRACE H Urine Ketones (NEG) TRACE H Urine Nitrite (NEG) NEG Urine Bilirubin (NEG) NEG Urine Urobilinogen (0.1 - 1.0 EU/dl) 0.2 Ur Leukocyte Esterase (NEG) NEG Ur Microscopic SEDIMENT EXAMINED Urine RBC (0 - 5 /HPF) 5-10 H Urine WBC (0 - 2 /HPF) RARE Ur Epithelial Cells (NONE,FEW) FEW Hyaline Casts (0/LPF) 1-3 H Urine Mucus (FEW,NONE) MOD H Urine Hemoglobin (NEG) MOD H Urine Glucose (N MG/DL) NEG 04/20 1939 Chemistry Sodium (137 - 145 mmol/L) 135 L Potassium (3.5 - 5.1 mmol/L) 4.3 Chloride (98 - 107 mmol/L) 102 Carbon Dioxide (22 - 30 mmol/L) 22 Anion Gap (5 - 16) 10 BUN (9 - 20 mg/dL) 20 Creatinine (0.7 - 1.2 mg/dL) 0.9 Estimated GFR (>60 ml/min) > 60 BUN/Creatinine Ratio (7 - 25 %) 22.2 Hematology CBC w Diff NO MAN DIFF REQ WBC (4.8 - 10.8 /CUMM) 9.3 RBC (4.70 - 6.10 /CUMM) 2.90 L Hgb (14.0 - 18.0 G/DL) 10.0 L Hct (42 - 52 %) 29.2 L MCV (80.0 - 94.0 FL) 100.7 H MCH (27.0 - 31.0 PG) 34.5 H RDW (11.5 - 14.5 %) 14.7 H Plt Count (130 - 400 /CUMM) 195 MPV (7.4 - 10.4 FL) 6.8 L Gran % (42.2 - 75.2 %) 73.2 Lymphocytes % (20.5 - 51.1 %) 10.7 L Monocytes % (1.7 - 9.3 %) 12.3 H Eosinophils % (0 - 5 %) 3.4 Basophils % (0.0 - 2.0 %) 0.4 Absolute Granulocytes (1.4 - 6.5 /CUMM) 6.8 H Absolute Lymphocytes (1.2 - 3.4 /CUMM) 1.0 L Absolute Monocytes (0.10 - 0.60 /CUMM) 1.1 H Absolute Eosinophils (0.0 - 0.7 /CUMM) 0.3 Absolute Basophils (0.0 - 0.2 /CUMM) 0 PUBS MCHC (33.0 - 37.0 G/DL) 34.3 Vital Signs Date Time Temp Pulse Resp B/P Pulse O2 O2 Flow FiO2 Ox Delivery Rate 04/21 0725 98.3 79 20 104/62 97 Room Air 04/21 0018 97.8 87 20 106/58 95 Nasal 3.0L Cannula 04/21 0000 97.8 87 20 106/58 04/21 0000 95 Nasal 2.0L Cannula 04/20 1619 99.1 71 19 118/58 90 Nasal 2.0L Cannula 04/20 1600 Nasal 1.0L Cannula 04/20 1446 Room Air
--- NOTE | 2016-04-21 09:40 | RADIOLOGY REPORT ---
EXAMINATION: XR HIP, LEFT CLINICAL INFORMATION: Status post ORIF left hip fracture 04/20/2016. COMPARISON: Left hip radiographs dated 04/19/2016. Intraoperative fluoroscopic images dated 04/20/2016. TECHNIQUE: Two views of the left hip. FINDINGS: There are surgical changes status post open reduction and internal fixation of an intertrochanteric left hip fracture. The orthopedic hardware is unchanged in position when compared with intraoperative fluoroscopic images dated 04/20/2016. The intertrochanteric fracture remains unchanged in appearance. No new fracture is seen. Prostate seeds are seen overlying the symphysis pubis. IMPRESSION: 1. Status post open reduction internal fixation of a left hip intertrochanteric fracture on 04/20/2016. Orthopedic hardware is stable in position when compared with intraoperative fluoroscopic images. 2. The intertrochanteric fracture is unchanged in appearance.
--- NOTE | 2016-04-21 11:31 | PN- Cardiology ---
Subjective Subjective: Patient appears comfortable in bed. Family is around him. Objective Vital Signs and I&Os Vital Signs Date Time Temp Pulse Resp B/P Pulse O2 O2 Flow FiO2 Ox Delivery Rate 04/21 0725 98.3 79 20 104/62 97 Room Air 04/21 0018 97.8 87 20 106/58 95 Nasal 3.0L Cannula 04/21 0000 97.8 87 20 106/58 / 0000 95 Nasal 2.0L Cannula 04/20 1619 99.1 71 19 118/58 90 Nasal 2.0L Cannula 04/20 1600 Nasal 1.0L Cannula 04/20 1446 Room Air Intake & Output 04/21 1600 04/21 0800 04/21 0000 04/20 1600 04/20 0800 04/20 0000 Intake Total 600 465 600 375 Output Total 100 500 250 Balance 500 465 100 375 -250 Intake, IV 600 225 600 375 Intake, Oral 240 0 0 Number 0 Bowel Movements Output, Urine 100 500 250 Patient 158 lb 175 lb Weight Physical Exam: General exam patient comfortable Head normocephalic/atraumatic Eyes sclera anicteric conjunctiva showed no pallor extraocular muscles were normal Neck no jugular venous distention no thyroid masses no palpable nodes Chest lungs were clear bilaterally Heart regular rhythm with a 1/6 systolic murmur next and abdomen soft no organomegaly bowel sounds normal next and extremities status post left hip fracture repaired no edema Neurological could not be examined Current Medications: Current Medications Sig/Chang Start time Last Medication Dose Route Stop Time Status Admin Acetaminophen 1,000 MG Q8P PRN 04/20 1600 AC N/A 1 UNIT IV Acetaminophen 650 MG Q6P PRN 04/20 0145 AC PO Amlodipine Besylate 5 MG DAILY 04/21 1000 CAN PO Atorvastatin Calcium 40 MG QPM 04/20 2200 AC 04/20 PO 2149 Cefazolin Sodium 2 GM Q8H 04/21 0135 DC 04/21 N/A 1 UNIT IV 04/21 1004 1013 Cyanocobalamin 1,000 MCG DAILY 04/21 1000 AC 04/21 PO 0954 Dextrose/Sodium 1,000 ML Q13H 04/20 0200 DC 04/20 Chloride IV 1408 Divalproex Sodium 500 MG QPM 04/20 2200 AC 04/20 PO 2148 Donepezil HCl 10 MG DAILY 04/20 1000 AC 04/21 PO 0954 Dorzolamide HCl 1 GTT BID 04/20 1000 AC 04/21 OPH 0955 Enoxaparin Sodium 40 MG DAILY 04/21 1000 AC 04/21 SC 0955 Escitalopram Oxalate 20 MG DAILY 04/20 1000 AC 04/21 PO 0954 Fentanyl Citrate 250 MCG .STK-MED ONE 04/20 1700 DC IM 04/20 1701 Hydromorphone HCl 0.8 MG Q4-6 PRN PRN 04/20 1530 DC IV Hydromorphone HCl 0.6 MG Q4-6 PRN PRN 04/20 1530 DC IV Latanoprost 1 GTT AT BEDTIME 04/20 2199 AC 04/20 OPH 2149 Lorazepam 1 MG BID 04/20 220 AC 04/20 PO 2149 Morphine Sulfate 2 MG Q4P PRN 04/20 0145 DC 04/20 IV 1042 Oxycodone HCl 5 MG Q6P PRN 04/20 0200 AC 04/20 PO 0719 Trazodone HCl 50 MG QAM PRN 04/20 1100 AC PO Results Last 48 Hrs of Labs/Mics: Laboratory Tests 04/21/16 0625: Anion Gap 9, Estimated GFR > 60, BUN/Creatinine Ratio 25.0, CBC w Diff NO MAN DIFF REQ, RBC 2.35 L, MCV 100.4 H, MCH 34.7 H, RDW 14.6 H, MPV 6.9 L, Gran % 77.6 H, Lymphocytes % 8.6 L, Monocytes % 10.5 H, Eosinophils % 2.7, Basophils % 0.6, Absolute Granulocytes 6.6 H, Absolute Lymphocytes 0.7 L, Absolute Monocytes 0.9 H, Absolute Eosinophils 0.2, Absolute Basophils 0, PUBS MCHC 34.5 04/21/16 0130: Urinalysis LIGHT H, Urine Color YEL, Urine Clarity HAZY H, Urine pH 6.0, Ur Specific Hughson 1.020, Urine Protein TRACE H, Urine Ketones TRACE H, Urine Nitrite NEG, Urine Bilirubin NEG, Urine Urobilinogen 0.2, Ur Leukocyte Esterase NEG, Ur Microscopic SEDIMENT EXAMINED, Urine RBC 5-10 H, Urine WBC RARE, Ur Epithelial Cells FEW, Hyaline Casts 1-3 H, Urine Mucus MOD H, Urine Hemoglobin MOD H, Urine Glucose NEG 04/20/16 1940: Anion Gap 10, Estimated GFR > 60, BUN/Creatinine Ratio 22.2, CBC w Diff NO MAN DIFF REQ, RBC 2.90 L, MCV 100.7 H, MCH 34.5 H, RDW 14.7 H, MPV 6.8 L, Gran % 73.2, Lymphocytes % 10.7 L, Monocytes % 12.3 H, Eosinophils % 3.4, Basophils % 0.4, Absolute Granulocytes 6.8 H, Absolute Lymphocytes 1.0 L, Absolute Monocytes 1.1 H, Absolute Eosinophils 0.3, Absolute Basophils 0, PUBS MCHC 34.3 04/20/16 0848: CBC w Diff NO MAN DIFF REQ, RBC 2.79 L, MCV 99.9 H, MCH 34.3 H, RDW 14.7 H, MPV 6.5 L, Gran % 73.5, Lymphocytes % 12.9 L, Monocytes % 11.6 H, Eosinophils % 1.7, Basophils % 0.3, Absolute Granulocytes 5.6, Absolute Lymphocytes 1.0 L, Absolute Monocytes 0.9 H, Absolute Eosinophils 0.1, Absolute Basophils 0, PUBS MCHC 34.3 04/20/16 0728: Troponin I < 0.01 04/19/16 2323: Anion Gap 10, Estimated GFR > 60, BUN/Creatinine Ratio 22.9, Glucose 125 H, Calcium 8.6, Total Bilirubin 0.6, AST 22, ALT 33, Alkaline Phosphatase 100, Troponin I < 0.01, Total Protein 6.3, Albumin 3.8, Globulin 2.5, Albumin/ Globulin Ratio 1.5, PT 10.5, INR 1.00, APTT < 20 L, CBC w Diff NO MAN DIFF REQ, RBC 3.21 L, MCV 100.3 H, MCH 34.6 H, RDW 14.3, MPV , Gran % 86.9 H, Lymphocytes % 8.6 L, Monocytes % 3.2, Eosinophils % 1.1, Basophils % 0.2, Absolute Granulocytes 7.6 H, Absolute Lymphocytes 0.8 L, Absolute Monocytes 0.3, Absolute Eosinophils 0.1, Absolute Basophils 0, PUBS MCHC 34.5, Serum Alcohol < 10.0 Recent Imaging Studies: Chest x-rayNo evidence for acute disease. Mild coarsening to interstitial markings throughout both lungs. Assessment/Plan Assessment/Plan In summary this 85-year-old gentleman has the following problems Assessment: Mr. Conrad is a pleasant 85 year old male with PMH Alzheimer's dementia , depression, GERD, glaucoma, macular degeneration, prostate cancer status post radiation (in remission) and heart disease status post pacemaker placement 6 years ago who was brought to [place] on 04/19/16 via ambulance after a witnessed mechanical fall at home (witnessed by his neighbor who subsequently called EMS). Patient reported that a few boxes fell on him while in his garage, resulting in a fall without head strike and with noted subsequent pain to his left hip. Patient denied head strike or loss of consciousness. Patient complaints at time of presentation include left hip pain exaggerated by movement, lower back pain and bilateral knee pain secondary to "arthritis. He has done well postoperatively. His vital signs are stable and appears comfortable. Hemoglobin drop is noted. We will have his pacemaker interrogated in the hospital. Echocardiogram should also be done if possible while in the hospital. The family is unaware of the specific head of english was interrogated his pacemaker but they will get back to us no change in cardiac medications at this time. Continue telemetry? No
[2016-04-21 15:52] VITALS: BP 108/50
[2016-04-21 23:31] VITALS: BP 132/63
--- NOTE | 2016-04-22 06:41 | PN- Housestaff ---
See Addendum Subjective Follow-up For: Left hip fracture s/p ORIF POD # 2 Subjective: Patient seen and examined at bedside this AM. He was having his dressing changed by surgical PA at time of evaluation. He endorsed mild discomfort with removal of bandages and with movement of his hip. He denied any other issues. Review of Systems Constitutional: Denies: chills, fever, malaise. EENTM: Denies: blurred vision, visual changes, hearing changes, nasal congestion. Cardiovascular: Denies: chest pain, palpitations. Respiratory: Denies: cough, short of breath. Gastrointestinal: Denies: abdominal pain, bloating, constipation, diarrhea. Genitourinary: Denies: dysuria. Musculoskeletal: Reports: joint pain. Skin: Denies: rash. Neurological/Psychological: Denies: anxiety, confusion. Hematologic/Endocrine: Denies: bleeding. Objective Last 24 Hrs of Vital Signs/I&O Vital Signs Date Time Temp Pulse Resp B/P Pulse O2 O2 Flow FiO2 Ox Delivery Rate 04/22 0819 97.9 77 20 105/62 93 Nasal 0.5L Cannula 04/22 0000 Nasal 1.0L Cannula 04/21 2331 98.3 81 20 132/63 94 Nasal 1.0L Cannula 04/21 1552 98.3 83 20 108/50 91 04/21 1200 Nasal 2.0L Cannula Intake & Output 04/22 1600 04/22 0800 04/22 0000 Intake Total 120 480 Output Total 400 150 Balance -280 330 Intake, Oral 120 480 Output, Urine 400 150 Physical Exam General Appearance: Alert, Cooperative, No Acute Distress Skin: Ecchymosis at distal incision site of left leg. HEENT: Atraumatic, Mucous Membr. moist/pink Neck: Supple, No JVD Lymphatic: Cervical nl Cardiovascular: Regular Rate, Normal S1, Normal S2, + systolic murmur appreciated at LUSB Lungs: Clear to Auscultation, Normal Air Movement Abdomen: Normal Bowel Sounds, Soft, No Tenderness Neurological: Normal Speech, Normal Tone Extremities: No Clubbing, No Cyanosis, No Edema Vascular: Pulses Symmetrical Current Medications: Current Medications Sig/Chang Start time Last Medication Dose Route Stop Time Status Admin Acetaminophen 650 MG .STK-MED ONE 04/21 1600 DC PO 04/21 1601 Acetaminophen 1,000 MG Q8P PRN 04/20 1600 AC N/A 1 UNIT IV Acetaminophen 650 MG Q6P PRN 04/20 0145 AC 04/21 PO 1603 Artificial Tears 2 GTT 4 TIMES/DAY PRN 04/21 1330 AC OPH Atorvastatin Calcium 40 MG QPM 04/20 2200 AC 04/21 PO 2153 Cefazolin Sodium 2 GM Q8H 04/21 0135 DC 04/21 N/A 1 UNIT IV 04/21 1004 1013 Cyanocobalamin 1,000 MCG DAILY 04/21 1000 AC 04/21 PO 0954 Dextrose/Sodium 1,000 ML Q13H 04/20 0200 DC 04/20 Chloride IV 1408 Divalproex Sodium 500 MG QPM 04/20 2200 AC 04/21 PO 2153 Donepezil HCl 10 MG DAILY 04/20 1000 AC 04/21 PO 0954 Dorzolamide HCl 1 GTT BID 04/20 1000 AC 04/21 OPH 2153 Enoxaparin Sodium 40 MG DAILY 04/22 1000 AC SC Enoxaparin Sodium 40 MG DAILY 04/21 1000 DC 04/21 SC 0955 Escitalopram Oxalate 20 MG DAILY 04/20 1000 AC 04/21 PO 0954 Hydromorphone HCl 0.6 MG Q4-6 PRN PRN 04/20 1530 DC IV Latanoprost 1 GTT AT BEDTIME 04/20 2200 AC 04/21 OPH 2153 Lorazepam 1 MG BID 04/20 2200 AC 04/21 PO 2153 Oxycodone HCl 5 MG Q6P PRN 04/20 0200 AC 04/20 PO 0719 Polyethylene Glycol 17 GM DAILY 04/22 1000 AC PO Senna 187 MG AT BEDTIME 04/22 2200 AC PO Trazodone HCl 50 MG QAM PRN 04/20 1100 AC PO Last 24 Hrs of Lab/Nelson Results Last 24 Hrs of Labs/Mics: Laboratory Tests 04/22/16 0620: Anion Gap 5, Estimated GFR > 60, BUN/Creatinine Ratio 20.0, Vitamin B12 Pending, Folate Pending, CBC w Diff NO MAN DIFF REQ, RBC 1.87 L, MCV 101.2 H, MCH 36.0 H, RDW 14.7 H, MPV 7.6, Gran % 77.8 H, Lymphocytes % 9.4 L, Monocytes % 10.6 H, Eosinophils % 2.0, Basophils % 0.2, Absolute Granulocytes 5.5, Absolute Lymphocytes 0.7 L, Absolute Monocytes 0.7 H, Absolute Eosinophils 0.1, Absolute Basophils 0, PUBS MCHC 35.6 Orders Radiology Findings: EXAMINATION: XR HIP, LEFT CLINICAL INFORMATION: Status post ORIF left hip fracture 04/20/2016. COMPARISON: Left hip radiographs dated 04/19/2016. Intraoperative fluoroscopic images dated 04/20/2016. TECHNIQUE: Two views of the left hip. FINDINGS: There are surgical changes status post open reduction and internal fixation of an intertrochanteric left hip fracture. The orthopedic hardware is unchanged in position when compared with intraoperative fluoroscopic images dated 04/20/2016. The intertrochanteric fracture remains unchanged in appearance. No new fracture is seen. Prostate seeds are seen overlying the symphysis pubis. IMPRESSION: 1. Status post open reduction internal fixation of a left hip intertrochanteric fracture on 04/20/2016. Orthopedic hardware is stable in position when compared with intraoperative fluoroscopic images. 2. The intertrochanteric fracture is unchanged in appearance. Miscellaneous Findings: Head CT: IMPRESSION: 1. No acute intracranial pathology. Moderate chronic white matter microangiopathy and parenchymal volume loss. 2. No evidence of acute cervical spine traumatic injury. 3. Multinodular thyroid gland. Assessment/Plan Assessment: Mr. Conrad is a pleasant 85 year old male with PMH Alzheimer's dementia , depression, GERD, glaucoma, macular degeneration, prostate cancer status post radiation (in remission) and heart disease status post pacemaker placement 6 years ago who was brought to [place] on 04/19/16 via ambulance after a witnessed mechanical fall at home (witnessed by his neighbor who subsequently called EMS). Patient reported that a few boxes fell on him while in his garage, resulting in a fall without head strike and with noted subsequent pain to his left hip. Patient denied head strike or loss of consciousness. Patient complaints at time of presentation include left hip pain exaggerated by movement, lower back pain and bilateral knee pain secondary to "arthritis". In the ED: Vital signs showed T 97.6, HR 62, RR 18, BP 166/81 and O2 saturation of 96% on room air. Labs showed WBC 9.4, macrocytic anemia to 11.1/32.2 (MCV 100.3), plt count unable to be obtained due to clumping, and BEP unremarkable except for slight hyponatremia to 133. Troponin negative to <0.01. INR normal to 1.00. Serum alcohol <10. CT head/Cspine showed no acute intracranial pathology, no c-spine trauma, multinodular thyroid gland. Left hip Xray showed slightly displaced intertrochanteric fracture with varus deformity. CXR showed no evidence of acute disease, though mild coarsening to interstitial markings noted bilatereally. EKG showed normal sinus rhythm at rate of 87 with RBBB, QTC 510. Patient is admitted to the general medicine floor and the follow is the current management: 1. Left mildly displaced intertrochanteric hip fracture * Hip XR showed slightly displaced intertrochanteric fracture with varus deformity of left hip * Cardiac clearance with Dr. 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 Carrillo * Pain control with PO tylenol for mild pain, Roxicodone 5 mg PO Q6P for severe pain * PT consult appreciated, patient max assist of 2, case management working on STR placement * Patient required about 2 L NC O2 post op, continue incentive spirometry, patient currently on 0.5 L NC, will taper to room air today * Total lovenox for DVTP for 2 weeks, he will follow up with Dr. Romano in 2 weeks for decision on if he should continue DVTP for longer 2. PPM for sick sinus syndrome/trifasicular block * Records obtained from [facility] and patient had PPM due to several syncopal episodes and noted sick sinus syndrome * Patient's son report his PPM was recently interrogated * [employer] evaluated PPM yesterday * Troponin negative x 2, EKG showed NSR with RBBB and prolonged QTC to 510 * F/U outpatient on as needed basis with cardiology 3. Alzheimer's dementia * Continue donepezil 10 mg PO daily 4. Depression * Patient's mood appears appropriate, no acute SI/HI * Continue escitalopram 10 mg PO daily * Depakote 500 mg PO QPM 5. Glaucoma * Continue latanoprost and dorzolamide 6. Influenza vaccination * Patient received flu shot on 04/20/16 7. Multinodular goiter * Patient to follow up with Dr. Carrillo outpatient for thyroid ultrasound * Follow up TSH, FT4, T3 added to AM labs 8. Macrocytic anemia * Patient on B12 daily * Will recheck B12 and folate this AM FULL CODE DVTP: ALPS Diet: NPO Mild-severe pain pathway FULL CODE Diet: NPO DVTP: Alps Mild-severe pain pathway Problem List: 1. Fracture, intertrochanteric, left femur 2. Alzheimer's dementia 3. Depression 4. Pacemaker Pain Ratin Pain Location: Left hip Pain Goal: Pain 4 or less Pain Plan: Roxicodone for severe pain, tylenol for mild pain. Tomorrow's Labs & Rationales: CBC in 1 week after discharge. Consulting Request: Consulting Specialty: Orthopedics Consulting Physician: Trav Romano MD Reason for Consult: FEMURE fracture
--- NOTE | 2016-04-22 07:49 | PN- Orthopedic ---
Subjective Subjective: No acute overnight events reported. Patient states that pain is under control adequately. Has been oob with pt without complaints, is a max assist of 2. Denies chest pain, shortness of breath and difficulty breathing. Denies nausea and vomitting. Has been voiding without difficulty. Objective Vital Signs and I&Os Vital Signs Date Time Temp Pulse Resp B/P Pulse O2 O2 Flow FiO2 Ox Delivery Rate 04/22 0000 Nasal 1.0L Cannula 04/21 2331 98.3 81 20 132/63 94 Nasal 1.0L Cannula 04/21 1552 98.3 83 20 108/50 91 04/21 1200 Nasal 2.0L Cannula 04/21 08 93 Nasal 2.0L Cannula Intake & Output 04/22 0804/22 0000 04/21 1600 04/21 0804/21 0000 04/20 1600 Intake Total 031 355 2643 600 465 600 Output Total 400 150 300 100 500 Balance -280 330 720 500 465 100 Intake, IV 300 600 225 600 Intake, Oral 120 480 720 240 0 Output, Urine 400 150 300 100 500 Physical Exam: General: Alert and oriented x3, no acute distress Cardiac: RRR, s1s2, systolic murmur Pulmonary: C T A Bilaterally, o2 being titrated down Abdomen: Non-tender, non-distended Extremities: Moves all extremities, distal sensation intact. Skin warm and well perfused. DP pulses palpable bilaterally. Bilateral calves soft and non- tender Surgical site: Left hip. Thigh compartment soft. Dressing taken down. No excess redness or warmth. Bakari intact to incsions x3. No drainage. Clean dry dressing applied Assessment/Plan Assessment/Plan This is a 85 year old male, POD 2, s/p ORIF left intertrochanteric fracture with IM nail, doing well -OOB with assist, can wbat -DVT ppx to include lovenox sq daily for minimum 2 weeks, discuss continuation of dvt ppx with Dr. Romano -Continue current pain regimen -Daily dry dressing changes -Mojave to be removed POD 14 -Surgery to sign off today, primary management per medical team
[2016-04-22 08:14] LABS: ABSOLUTE BASOPHIL COUNT 0 /CUMM (0.0-0.2); ABSOLUTE EOSINOPHIL COUNT 0.1 /CUMM (0.0-0.7); ABSOLUTE GRANULOCYTE CT 5.5 /CUMM (1.4-6.5); ABSOLUTE LYMPH COUNT 0.7 /CUMM (1.2-3.4); ABSOLUTE MONOCYTE COUNT 0.7 /CUMM (0.10-0.60); BASOPHIL % 0.2 % (0.0-2.0); GRANULOCYTE % 77.8 % (42.2-75.2); MEAN CORPUSCULAR HGB CONC 35.6 G/DL (33.0-37.0); MEAN CORPUSCULAR VOLUME 101.2 FL (80.0-94.0); MEAN PLATELET VOLUME 7.6 FL (7.4-10.4); PLATELET COUNT 112 /CUMM (130-400); RBC DISTRIBUTION WIDTH 14.7 % (11.5-14.5); RED BLOOD CELL CT 1.87 /CUMM (4.70-6.10)
[2016-04-22 08:19] VITALS: BP 105/62
[2016-04-22] MEDS ORDERED: LOVENOX40 MG/0.1 SC (09:06)
[2016-04-22] MEDS ORDERED: OXYCODONE HCL5 M1 PO (09:24)
--- NOTE | 2016-04-22 09:27 | PN- Att Addend ---
Attending Addendum Attending Brief Note Patient complains of pain left hip. General Appearance: Alert, No Acute Distress Skin: Grossly normal HEENT: PEERLA Neck: Supple, No JVD Cardiovascular: Regular Rate, Normal S1, Normal S2, No Murmurs Lungs: Minimal bibasilar crackles Abdomen: Normal Bowel Sounds, Soft, No Tenderness Neurological: Normal Speech, Strength at 5/5 X4 Ext, Cranial Nerves 3-12 NL, Reflexes 2+ Extremities: No Clubbing, No Cyanosis, No Edema Vascular: Normal Pulses Assessment 85-year-old with history of dementia, glaucoma, history of pacemaker placement who does not at this point follow cardiology presenting with left slightly displaced hip fracture status post what likely appears to be a mechanical fall based on limited history but the patient and his caregiver. He is currently status post hip repair postoperative day #2. Pain is minimal. We will get physical clock. Stable for placement to rehabilitation. Multinodular thyroid. Check thyroid function and we will get ultrasound of thyroid as outpatient. Plan Incentive spirometry Taper oxygen as tolerated Tylenol for [id number] pain and Roxicodone 1 tab every 6 hours for severe pain Lovenox for DVT prophylaxis Continue other home meds Current Medications Sig/Chang Start time Last Medication Dose Route Stop Time Status Admin Acetaminophen 650 MG .STK-MED ONE 04/21 1600 DC PO 04/21 1601 Acetaminophen 1,000 MG Q8P PRN 04/20 1600 AC N/A 1 UNIT IV Acetaminophen 650 MG Q6P PRN / 0145 AC 04/21 PO 1603 Artificial Tears 2 GTT 4 TIMES/DAY PRN 04/21 1330 AC OPH Atorvastatin Calcium 40 MG QPM 04/20 2200 AC 04/21 PO 2153 Cefazolin Sodium 2 GM Q8H 04/21 0135 DC 04/21 N/A 1 UNIT IV 04/21 1004 1013 Cyanocobalamin 1,000 MCG DAILY 04/21 1000 AC 04/21 PO 0954 Dextrose/Sodium 1,000 ML Q13H 04/20 0200 DC 04/20 Chloride IV 1408 Divalproex Sodium 500 MG QPM 02/01 2200 AC 04/21 PO 2153 Donepezil HCl 10 MG DAILY 04/20 1000 AC 04/21 PO 0954 Dorzolamide HCl 1 GTT BID 04/20 1000 AC 04/21 OPH 2153 Enoxaparin Sodium 40 MG DAILY 04/22 1000 AC SC Enoxaparin Sodium 40 MG DAILY 04/21 1000 DC 04/21 SC 0955 Escitalopram Oxalate 20 MG DAILY 04/20 1000 AC 04/21 PO 0954 Hydromorphone HCl 0.6 MG Q4-6 PRN PRN 04/20 1530 DC IV Latanoprost 1 GTT AT BEDTIME 04/20 2200 AC 04/21 OPH 2153 Lorazepam 1 MG BID 04/20 2200 AC 04/21 PO 2153 Oxycodone HCl 5 MG Q6P PRN 04/20 0200 AC 04/20 PO 0719 Polyethylene Glycol 17 GM DAILY 04/22 1000 AC PO Senna 187 MG AT BEDTIME 04/22 220 AC PO Trazodone HCl 50 MG QAM PRN 04/20 1100 AC PO Laboratory Tests 04/22 0620 Chemistry Sodium (137 - 145 mmol/L) 134 L Potassium (3.5 - 5.1 mmol/L) 4.1 Chloride (98 - 107 mmol/L) 103 Carbon Dioxide (22 - 30 mmol/L) 26 Anion Gap (5 - 16) 5 BUN (9 - 20 mg/dL) 14 Creatinine (0.7 - 1.2 mg/dL) 0.7 Estimated GFR (>60 ml/min) > 60 BUN/Creatinine Ratio (7 - 25 %) 20.0 Vitamin B12 (239 - 931 pg/mL) Pending Folate (2.76 - 20.0 ng/mL) Pending Hematology CBC w Diff NO MAN DIFF REQ WBC (4.8 - 10.8 /CUMM) 7.0 RBC (4.70 - 6.10 /CUMM) 1.87 L Hgb (14.0 - 18.0 G/DL) 6.8 *L Hct (42 - 52 %) 19.0 *L MCV (80.0 - 94.0 FL) 101.2 H MCH (27.0 - 31.0 PG) 36.0 H RDW (11.5 - 14.5 %) 14.7 H Plt Count (130 - 400 /CUMM) 112 L MPV (7.4 - 10.4 FL) 7.6 Gran % (42.2 - 75.2 %) 77.8 H Lymphocytes % (20.5 - 51.1 %) 9.4 L Monocytes % (1.7 - 9.3 %) 10.6 H Eosinophils % (0 - 5 %) 2.0 Basophils % (0.0 - 2.0 %) 0.2 Absolute Granulocytes (1.4 - 6.5 /CUMM) 5.5 Absolute Lymphocytes (1.2 - 3.4 /CUMM) 0.7 L Absolute Monocytes (0.10 - 0.60 /CUMM) 0.7 H Absolute Eosinophils (0.0 - 0.7 /CUMM) 0.1 Absolute Basophils (0.0 - 0.2 /CUMM) 0 PUBS MCHC (33.0 - 37.0 G/DL) 35.6 Vital Signs Date Time Temp Pulse Resp B/P Pulse O2 O2 Flow FiO2 Ox Delivery Rate 04/22 0819 97.9 77 20 105/62 93 Nasal 0.5L Cannula 04/22 0000 Nasal 1.0L Cannula 04/21 2331 98.3 81 20 132/63 94 Nasal 1.0L Cannula 04/21 1552 98.3 83 20 108/50 91 04/21 1200 Nasal 2.0L Cannula
--- NOTE | 2016-04-22 11:24 | ECHOCARDIOGRAM REPORT ---
BEN CHRISTINE Age: 85 : 1930 Gender: M Exam Date: 04/21/2016 18:30 Exam Location: [place] Ht (in): 67 Wt (lb): 158 BSA: 1.85 BP: 108 / 50 Ordering Physician: KAVYA YO MD Referring Physician: Andrey Galvan MD Technologist: Alisa Arzate [facility] Room Number: [id number] Indications: [id number] Rhythm: Technical Quality: FINDINGS Left Ventricle Normal LV chamber size, wall thickness and systolic function. Estimated LVEF is 60% without focal wall motion abnormalities. Right Ventricle Grossly normal appearing right ventricle structure and function Right Atrium Normal appearing right atrium Left Atrium Normal left atrial size Mitral Valve Mildly thickened and calcified mitral valve leaflets with normal leaflet opening. There is trace mitral regurgitation. Aortic Valve Suboptimally visualized aortic valve; however, with a trileaflet appearance. There is moderate leaflet calcification and adequate leaflet opening. There is no aortic insufficiency. Tricuspid Valve Grossly normal appearing tricuspid valvular leaflet structure and function Pulmonic Valve Grossly normal appearing pulmonic valvular leaflet structure and function; however, suboptimally visualized. Pericardium Normal pericardium without effusion Great Vessels Grossly normal appearing ascending aorta and aortic root. CONCLUSIONS Normal LV chamber size, wall thickness and systolic function. Estimated LVEF is 60% without focal wall motion abnormalities. Mildly thickened and calcified mitral valve leaflets with normal leaflet opening. There is trace mitral regurgitation. Juan Flores M.D. (Electronically Signed) Final Date: 22 April 2016 11:24 MEASUREMENTS (Male / Female) Normal Values 2D ECHO LV Diastolic Diameter PLAX 3.6 cm 4.2 - 5.9 / 3.9 - 5.3 cm LV Systolic Diameter PLAX 2.3 cm 2.1 - 4.0 cm LV Fractional Shortening PLAX 36.1 % 25 - 46 % LV Ejection Fraction 2D Teich 66.7 % IVS Diastolic Thickness 1.0 cm LVPW Diastolic Thickness 1.0 cm LV Relative Wall Thickness 0.6 RV Internal Dim ED PLAX 2.7 cm 1.9 - 3.8 cm LVOT Diameter 2.1 cm Aortic Root Diameter 3.8 cm LA Systolic Diameter LX 2.7 cm 3.0 - 4.0 / 2.7 - 3.8 cm LA Volume 16.0 cm 18 - 58 / 22 - 52 cm DOPPLER AV Peak Velocity 257.0 cm/s AV Peak Gradient 26.4 mmHg AV Mean Velocity 161.0 cm/s AV Mean Gradient 13.0 mmHg AV Velocity Time Integral 46.0 cm LVOT Peak Velocity 139.0 cm/s LVOT Peak Gradient 7.7 mmHg LVOT Mean Velocity 94.2 cm/s LVOT Mean Gradient 4.0 mmHg LVOT Velocity Time Integral 34.5 cm LVOT Stroke Volume 119.5 cm AV Area Cont Eq vti 2.6 cm AV Area Cont Eq pk 1.9 cm MV Peak Velocity 112.0 cm/s MV Peak Gradient 5.0 mmHg MV Mean Velocity 77.9 cm/s MV Mean Gradient 3.0 mmHg Mitral E Point Velocity 61.7 cm/s Mitral A Point Velocity 83.9 cm/s Mitral E to A Ratio 0.7 MV PHT Velocity 102.0 cm/s MV Deceleration [place] 370.0 cm/s MV Pressure Half Time 82.7 ms MV Area PHT 2.7 cm MV Deceleration Time 446.0 ms TR Peak Velocity 281.0 cm/s TR Peak Gradient 31.6 mmHg Right Atrial Pressure 5.0 mmHg Pulmonary Artery Systolic Pressu 36.6 mmHg Right Ventricular Systolic Press 36.6 mmHg LV E' Lateral Velocity 7.8 cm/s Mitral E to LV E' Lateral Ratio 7.9 LV E' Septal Velocity 7.4 cm/s Mitral E to LV E' Septal Ratio 8.4
[2016-04-22 15:56] VITALS: BP 105/62
== END 2016-04-22 17:53 | DRG 481 ==
LOC: ENRESERVTM → ENRESERVDT → ERH 18:56 → 2NB 23:56 → ENPENDDIS 23:56 → ERHI 23:56 → 2NB 04-20 02:28
PROVIDERS: Physician Assistant Medical; Student in an Organized Health Care Education/Training Program; ADMIT Internal Medicine
PROC: 0QS704Z Reposition Left Upper Femur with Internal Fixation Device, Open Approach (ICD-10-PCS; principal; 2016-04-20)
PROC: 30233N1 Transfusion of Nonautologous Red Blood Cells into Peripheral Vein, Percutaneous Approach (ICD-10-PCS; 2016-04-22)
DX: S72.142A Displaced intertrochanteric fracture of left femur, initial encounter for closed fracture (principal); D62 Acute posthemorrhagic anemia; G30.9 Alzheimer's disease, unspecified; F02.80 Dementia in other diseases classified elsewhere, unspecified severity, without behavioral disturbance, psychotic disturbance, mood disturbance, and anxiety; H40.9 Unspecified glaucoma; Z95.0 Presence of cardiac pacemaker; Z85.46 Personal history of malignant neoplasm of prostate; W18.39XA Other fall on same level, initial encounter; Y92.008 Other place in unspecified non-institutional (private) residence as the place of occurrence of the external cause; H35.30 Unspecified macular degeneration; K21.9 Gastro-esophageal reflux disease without esophagitis; F32.9 Major depressive disorder, single episode, unspecified; E04.2 Nontoxic multinodular goiter
CPT/HCPCS: 2NBP; ERO; 73502-LT; 81001; 82436; 86920; 87086; 90662; 93005; 93010; 93306; 96374; 96376; 97110-GO; 97116-GO; 97161-GP; 97530-GO; G0480; J0131; J0690; J1650; J7042; P9016